=== PATIENT | female | born 1965 | race Caucasian/White ===

== ENCOUNTER → 2018-01-26 | Outpatient (CLI) | payer MEDICARE, OTHER ==
[~2018-01-26] MED LIST: ALBU90OI6 INH; AMOCLA500 PO; Aspir 8181 MG PO; BYDUREON P2 MG/0.65 SQ; BYDUREON2 MG SC; Clobetasol Prop50 ML TOP; DULO30 PO; DULO60 PO; FLUT110OIA INH; GABA600 PO; GLIM4 PO; IBUP400 PO; INSDET100 SC; INVOKANA300 MG PO; LISI5 PO; Lantus100 UNIT/1 SQ; METO50ER PO; METPRE4DP PO; Maxalt10 MG PO; Metformin HCl1000 MG PO; Norco 10-325 T1 EACH PO; Norco 5-325 Ta1 EACH PO; SOLI5
[2018-01-29 10:32] LABS: HPV Genotype 16 Not Detected (NOTDET); HPV Genotype 18 Not Detected (NOTDET); HPV High Risk Other Not Detected (NOTDET)
== END ==
LOC: PLD 13:39 → LAB SHORT 13:39
PROVIDERS: Registered Nurse Community Health
DX: Z12.4 Encounter for screening for malignant neoplasm of cervix (principal); N95.0 Postmenopausal bleeding; N93.9 Abnormal uterine and vaginal bleeding, unspecified; N89.8 Other specified noninflammatory disorders of vagina
CPT/HCPCS: 87070; 87106; 87205

== ENCOUNTER 2018-02-08 19:57 | Inpatient (IN) | payer MEDICARE, OTHER ==
[~2018-02-08] VITALS: Ht 177.8 cm; Wt 120.5 kg
[2018-02-08 20:36] LABS: BASOPHILS ABSOLUTE AUTO 0.05 K/mm3 (0.00-0.23); BASOPHILS PERCENT AUTO 0 % (0-2); EOSINOPHILS ABSOLUTE AUTO 0.12 K/mm3 (0.00-0.68); EOSINOPHILS PERCENT AUTO 1 % (0-6); Hematocrit 43.1 % (33.0-51.0); Hemoglobin 14.6 g/dL (11.5-16.0); IMMATURE GRAN ABSOLUTE AUTO 0.06 K/mm3 (0.00-0.10); IMMATURE GRAN PERCENT AUTO 1 % (0-1); LYMPHOCYTES ABSOLUTE AUTO 1.87 K/mm3 (0.84-5.20); LYMPHOCYTES PERCENT AUTO 17 % (21-46); MONOCYTES ABSOLUTE AUTO 0.66 K/mm3 (0.16-1.47); MONOCYTES PERCENT AUTO 6 % (4-13); Mean Corpuscular HGB 32.2 pg (26.0-34.0); Mean Corpuscular HGB Conc 33.9 g/dL (31.5-36.5); Mean Corpuscular Volume 95 fL (80-100); NEUTROPHILS PERCENT AUTO 76 % (41-73); Platelet Count 164 K/mm3 (150-400); RDW Coefficient Variation 14.7 % (11.7-14.2); RDW Standard Deviation 50.7 fL (35.1-46.3); Red Blood Cell Count 4.54 M/mm3 (3.80-5.20); White Blood Cell Count 11.26 K/mm3 (4.00-11.30)
[2018-02-08 20:44] LABS: Alanine Aminotransfer (ALT/SGP 22 U/L (12-78); Albumin, Blood 2.8 g/dL (3.4-5.0); Albumin/Globulin Ratio 0.6 (0.8-1.8); Alk Phos 112 U/L (50-136); Anion Gap 6 mmol/L (6-16); Aspartate Aminotrans (AST/SGOT 17 U/L (12-37); Bilirubin, Total 0.6 mg/dL (0.1-1.0); Blood Urea Nitrogen 14 mg/dL (8-24); Bun/Creatinine Ratio 22.5 (12.0-20.0); CO2, Blood 29 mmol/L (21-32); Calcium, Blood 8.5 mg/dL (8.5-10.1); Chloride, Blood 101 mmol/L (98-108); Creatinine, Blood 0.62 mg/dL (0.40-1.00); Globulin, Blood 4.7 g/dL (2.2-4.0); Glomerular Filtration Rate >60 (60-); Glucose, Blood 266 mg/dL (70-99); Sodium, Blood 136 mmol/L (136-145); Total Protein, Blood 7.5 g/dL (6.4-8.2)
[2018-02-08] MEDS ORDERED: CLOB.05TO TOP (21:37)
[2018-02-08] MEDS ORDERED: DICL75ER PO (21:38)
[2018-02-08] MEDS ORDERED: DICLOFENAC SOD100 G1 TOP (21:38)
[2018-02-08] MEDS ORDERED: IBUP800 PO (22:07)
[2018-02-08] MEDS ORDERED: DIAZ5 PO (22:08)
[2018-02-08] MEDS ORDERED: Nyamyc15 GM TOP (22:08)
[2018-02-09 05:00] LABS: BASOPHILS ABSOLUTE AUTO 0.03 K/mm3 (0.00-0.23); BASOPHILS PERCENT AUTO 0 % (0-2); EOSINOPHILS ABSOLUTE AUTO 0.13 K/mm3 (0.00-0.68); EOSINOPHILS PERCENT AUTO 1 % (0-6); Hematocrit 38.5 % (33.0-51.0); Hemoglobin 12.8 g/dL (11.5-16.0); IMMATURE GRAN ABSOLUTE AUTO 0.06 K/mm3 (0.00-0.10); IMMATURE GRAN PERCENT AUTO 1 % (0-1); LYMPHOCYTES ABSOLUTE AUTO 1.96 K/mm3 (0.84-5.20); LYMPHOCYTES PERCENT AUTO 20 % (21-46); MONOCYTES ABSOLUTE AUTO 0.73 K/mm3 (0.16-1.47); MONOCYTES PERCENT AUTO 7 % (4-13); Mean Corpuscular HGB 31.4 pg (26.0-34.0); Mean Corpuscular HGB Conc 33.2 g/dL (31.5-36.5); Mean Corpuscular Volume 94 fL (80-100); Mean Platelet Volume 12.3 fL (9.1-12.4); NEUTROPHILS ABSOLUTE AUTO 7.16 K/mm3 (1.96-9.15); NEUTROPHILS PERCENT AUTO 71 % (41-73); Platelet Count 137 K/mm3 (150-400); RDW Coefficient Variation 14.7 % (11.7-14.2); RDW Standard Deviation 51.2 fL (35.1-46.3); Red Blood Cell Count 4.08 M/mm3 (3.80-5.20); White Blood Cell Count 10.07 K/mm3 (4.00-11.30)
[2018-02-09] MEDS ORDERED: Maxalt10 MG (05:09)
[2018-02-09] MEDS ORDERED: SOLI5 PO (05:09)
[2018-02-09] MEDS ORDERED: TRAM50 PO (05:10)
[2018-02-09 05:19] LABS: Anion Gap 6 mmol/L (6-16); Blood Urea Nitrogen 10 mg/dL (8-24); Bun/Creatinine Ratio 16.1 (12.0-20.0); CO2, Blood 30 mmol/L (21-32); Calcium, Blood 8.1 mg/dL (8.5-10.1); Chloride, Blood 105 mmol/L (98-108); Creatinine, Blood 0.62 mg/dL (0.40-1.00); Glomerular Filtration Rate >60 (60-); Glucose, Blood 125 mg/dL (70-99); Sodium, Blood 141 mmol/L (136-145)
[2018-02-09 22:38] LABS: Vancomycin, Trough 10.7 ug/mL (5.0-10.0)
[2018-02-11 11:11] LABS: Vancomycin, Trough 18.3 ug/mL (5.0-10.0)
[2018-02-12 06:05] LABS: Hematocrit 39.1 % (33.0-51.0); Mean Corpuscular HGB 31.3 pg (26.0-34.0); Mean Corpuscular HGB Conc 33.2 g/dL (31.5-36.5); Mean Corpuscular Volume 94 fL (80-100); Mean Platelet Volume 11.8 fL (9.1-12.4); Platelet Count 178 K/mm3 (150-400); RDW Coefficient Variation 14.7 % (11.7-14.2); RDW Standard Deviation 50.4 fL (35.1-46.3); Red Blood Cell Count 4.15 M/mm3 (3.80-5.20); White Blood Cell Count 8.86 K/mm3 (4.00-11.30)
[2018-02-12 06:26] LABS: Anion Gap 7 mmol/L (6-16); Blood Urea Nitrogen 20 mg/dL (8-24); Bun/Creatinine Ratio 27.9 (12.0-20.0); CO2, Blood 28 mmol/L (21-32); Chloride, Blood 107 mmol/L (98-108); Creatinine, Blood 0.72 mg/dL (0.40-1.00); Glomerular Filtration Rate >60 (60-); Glucose, Blood 138 mg/dL (70-99); Sodium, Blood 142 mmol/L (136-145)
[2018-02-12] MEDS ORDERED: CLOB.05TO TOP (13:10)
[2018-02-12] MEDS ORDERED: Augmentin 875-1 EACH PO (13:11)
[2018-02-12] MEDS ORDERED: SACC250C PO (13:11)
[2018-02-12] MEDS ORDERED: MIRALAX17 GM PO (13:12)
== END 2018-02-12 15:04 | disposition home or self-care (01) | DRG 623 ==
LOC: ER 19:57 → MEDS 19:58 → ENPENDDIS 02-12 11:00 → MEDS 02-12 15:04
PROVIDERS: Emergency Medicine; Internal Medicine; Nurse Practitioner Acute Care; Podiatrist Foot & Ankle Surgery
PROC: 0JBQ0ZZ Excision of Right Foot Subcutaneous Tissue and Fascia, Open Approach (ICD-10-PCS; principal; 2018-02-10 12:00)
DX: E11.621 Type 2 diabetes mellitus with foot ulcer (principal); Z68.41 Body mass index [BMI] 40.0-44.9, adult; L97.413 Non-pressure chronic ulcer of right heel and midfoot with necrosis of muscle; E11.40 Type 2 diabetes mellitus with diabetic neuropathy, unspecified; Z79.4 Long term (current) use of insulin; G47.33 Obstructive sleep apnea (adult) (pediatric); I10 Essential (primary) hypertension; F41.9 Anxiety disorder, unspecified; B95.4 Other streptococcus as the cause of diseases classified elsewhere; E66.01 Morbid (severe) obesity due to excess calories; K59.00 Constipation, unspecified
CPT/HCPCS: 36415; 73630; 73718; 80048; 80053; 80202; 82565; 82947; 83605; 85025; 85027; 87040; 87070; 87071; 87075; 87077; 87147; 87186; 87205; 88304; 93005; 93010; 94660; 94762; 96365; 96375; 99285; J0171; J0690; J1100; J1200; J1650; J1815; J2250; J2405; J3010; J3370; J7030; J7050; J7120

== ENCOUNTER 2018-04-19 18:51 | Emergency (ER) | payer MEDICARE, OTHER ==
[~2018-04-19] VITALS: Ht 175.3 cm; Wt 120.2 kg
[~2018-04-19 18:51] MED LIST changes: +Augmentin 875-1 EACH PO; +CLOB.05TO TOP; +DIAZ5 PO; +DICL75ER PO; +DICLOFENAC SOD100 G1 TOP; +IBUP800 PO; +MIRALAX17 GM PO; +Maxalt10 MG; +Nyamyc15 GM TOP; +SACC250C PO; +SOLI5 PO; +TRAM50 PO
[2018-04-19 19:39] LABS: BASOPHILS ABSOLUTE AUTO 0.07 K/mm3 (0.00-0.23); BASOPHILS PERCENT AUTO 1 % (0-2); EOSINOPHILS ABSOLUTE AUTO 0.13 K/mm3 (0.00-0.68); EOSINOPHILS PERCENT AUTO 1 % (0-6); Hematocrit 44.5 % (33.0-51.0); Hemoglobin 14.9 g/dL (11.5-16.0); IMMATURE GRAN ABSOLUTE AUTO 0.04 K/mm3 (0.00-0.10); IMMATURE GRAN PERCENT AUTO 0 % (0-1); LYMPHOCYTES ABSOLUTE AUTO 1.91 K/mm3 (0.84-5.20); LYMPHOCYTES PERCENT AUTO 18 % (21-46); MONOCYTES PERCENT AUTO 7 % (4-13); Mean Corpuscular HGB 31.6 pg (26.0-34.0); Mean Corpuscular HGB Conc 33.5 g/dL (31.5-36.5); Mean Corpuscular Volume 94 fL (80-100); Mean Platelet Volume 12.4 fL (9.1-12.4); NEUTROPHILS ABSOLUTE AUTO 7.85 K/mm3 (1.96-9.15); NEUTROPHILS PERCENT AUTO 73 % (41-73); Platelet Count 172 K/mm3 (150-400); RDW Coefficient Variation 14.6 % (11.7-14.2); RDW Standard Deviation 50.4 fL (35.1-46.3); Red Blood Cell Count 4.72 M/mm3 (3.80-5.20)
[2018-04-19 20:03] LABS: Alanine Aminotransfer (ALT/SGP 34 U/L (12-78); Albumin, Blood 3.2 g/dL (3.4-5.0); Albumin/Globulin Ratio 0.7 (0.8-1.8); Alk Phos 163 U/L (50-136); Anion Gap 9 mmol/L (6-16); Aspartate Aminotrans (AST/SGOT 36 U/L (12-37); Bilirubin, Total 0.8 mg/dL (0.1-1.0); Blood Urea Nitrogen 19 mg/dL (8-24); Bun/Creatinine Ratio 23.7 (12.0-20.0); CO2, Blood 29 mmol/L (21-32); Calcium, Blood 8.9 mg/dL (8.5-10.1); Chloride, Blood 100 mmol/L (98-108); Globulin, Blood 4.8 g/dL (2.2-4.0); Glomerular Filtration Rate >60 (60-); Glucose, Blood 207 mg/dL (70-99); Sodium, Blood 138 mmol/L (136-145)
[2018-04-19] MEDS ORDERED: Novolog100 UNIT/2 SC (21:57)
[2018-04-20] MEDS ORDERED: Clobetasol Prop50 ML TOP (17:53)
[2018-04-20] MEDS ORDERED: GLIM4 PO (17:54)
[2018-04-20] MEDS ORDERED: TRAM50 PO ×2 (17:55→17:56)
== END 2018-04-20 03:35 | disposition home or self-care (01) ==
LOC: ER 18:51
PROVIDERS: Emergency Medicine
DX: S91.115A Laceration without foreign body of left lesser toe(s) without damage to nail, initial encounter (principal); E11.621 Type 2 diabetes mellitus with foot ulcer; L03.116 Cellulitis of left lower limb; L97.529 Non-pressure chronic ulcer of other part of left foot with unspecified severity; J45.909 Unspecified asthma, uncomplicated; Z79.4 Long term (current) use of insulin; Z79.899 Other long term (current) drug therapy; X58.XXXA Exposure to other specified factors, initial encounter
CPT/HCPCS: 36415; 73630; 73701; 80053; 83605; 85025; 96365; 96366; 99284-25; J3370; J7050; Q9967

== ENCOUNTER 2018-04-20 12:04 | Inpatient (IN) | payer MEDICARE ==
[~2018-04-20] VITALS: Ht 177.8 cm; Wt 119.9 kg
[~2018-04-20 12:04] MED LIST changes: +Novolog100 UNIT/2 SC
[2018-04-20 15:08] LABS: BASOPHILS ABSOLUTE AUTO 0.05 K/mm3 (0.00-0.23); BASOPHILS PERCENT AUTO 1 % (0-2); EOSINOPHILS ABSOLUTE AUTO 0.14 K/mm3 (0.00-0.68); EOSINOPHILS PERCENT AUTO 2 % (0-6); Hematocrit 40.5 % (33.0-51.0); Hemoglobin 13.3 g/dL (11.5-16.0); IMMATURE GRAN ABSOLUTE AUTO 0.03 K/mm3 (0.00-0.10); IMMATURE GRAN PERCENT AUTO 0 % (0-1); LYMPHOCYTES ABSOLUTE AUTO 1.04 K/mm3 (0.84-5.20); LYMPHOCYTES PERCENT AUTO 11 % (21-46); MONOCYTES ABSOLUTE AUTO 0.58 K/mm3 (0.16-1.47); MONOCYTES PERCENT AUTO 6 % (4-13); Mean Corpuscular HGB 30.9 pg (26.0-34.0); Mean Corpuscular HGB Conc 32.8 g/dL (31.5-36.5); Mean Corpuscular Volume 94 fL (80-100); Mean Platelet Volume 12.1 fL (9.1-12.4); NEUTROPHILS ABSOLUTE AUTO 7.32 K/mm3 (1.96-9.15); NEUTROPHILS PERCENT AUTO 80 % (41-73); Platelet Count 145 K/mm3 (150-400); RDW Coefficient Variation 14.6 % (11.7-14.2); RDW Standard Deviation 50.1 fL (35.1-46.3); Red Blood Cell Count 4.31 M/mm3 (3.80-5.20); White Blood Cell Count 9.16 K/mm3 (4.00-11.30)
[2018-04-20 15:25] LABS: Alanine Aminotransfer (ALT/SGP 31 U/L (12-78); Albumin, Blood 2.8 g/dL (3.4-5.0); Albumin/Globulin Ratio 0.7 (0.8-1.8); Alk Phos 150 U/L (50-136); Anion Gap 9 mmol/L (6-16); Aspartate Aminotrans (AST/SGOT 23 U/L (12-37); Bilirubin, Total 0.6 mg/dL (0.1-1.0); Blood Urea Nitrogen 18 mg/dL (8-24); Bun/Creatinine Ratio 27.7 (12.0-20.0); CO2, Blood 27 mmol/L (21-32); Calcium, Blood 8.6 mg/dL (8.5-10.1); Chloride, Blood 101 mmol/L (98-108); Creatinine, Blood 0.65 mg/dL (0.40-1.00); Globulin, Blood 4.3 g/dL (2.2-4.0); Glomerular Filtration Rate >60 (60-); Glucose, Blood 258 mg/dL (70-99); Potassium, Blood 4.3 mmol/L (3.5-5.5); Sodium, Blood 137 mmol/L (136-145); Total Protein, Blood 7.1 g/dL (6.4-8.2)
[2018-04-20] MEDS ORDERED: Clobetasol Prop50 ML TOP (17:53)
[2018-04-20] MEDS ORDERED: GLIM4 PO (17:54)
[2018-04-20] MEDS ORDERED: TRAM50 PO ×2 (17:55→17:56)
[2018-04-23 08:25] LABS: Hematocrit 41.1 % (33.0-51.0); Hemoglobin 13.6 g/dL (11.5-16.0); Mean Corpuscular HGB 30.7 pg (26.0-34.0); Mean Corpuscular HGB Conc 33.1 g/dL (31.5-36.5); Mean Corpuscular Volume 93 fL (80-100); Mean Platelet Volume 11.5 fL (9.1-12.4); Platelet Count 172 K/mm3 (150-400); RDW Coefficient Variation 14.6 % (11.7-14.2); RDW Standard Deviation 49.1 fL (35.1-46.3); Red Blood Cell Count 4.43 M/mm3 (3.80-5.20); White Blood Cell Count 8.46 K/mm3 (4.00-11.30)
[2018-04-23 08:43] LABS: Anion Gap 6 mmol/L (6-16); Blood Urea Nitrogen 14 mg/dL (8-24); Bun/Creatinine Ratio 21.6 (12.0-20.0); CO2, Blood 31 mmol/L (21-32); Calcium, Blood 8.6 mg/dL (8.5-10.1); Chloride, Blood 105 mmol/L (98-108); Creatinine, Blood 0.65 mg/dL (0.40-1.00); Glomerular Filtration Rate >60 (60-); Glucose, Blood 139 mg/dL (70-99); Potassium, Blood 4.5 mmol/L (3.5-5.5); Sodium, Blood 142 mmol/L (136-145)
[2018-04-23] MEDS ORDERED: INSU100I6 (11:47)
[2018-04-23] MEDS ORDERED: TRAM50 PO (11:48)
[2018-04-23] MEDS ORDERED: Nystatin15 GM TOP (11:49)
[2018-04-23] MEDS ORDERED: MUPIROCIN15 GM TOP (11:52)
[2018-04-23] MEDS ORDERED: BETADINE TOP (11:55)
[2018-04-23] MEDS ORDERED: Augmentin 875-1 EACH PO (11:56)
[2018-04-23] MEDS ORDERED: ACIDOPHILUS LA1 EACH PO (11:57)
== END 2018-04-23 21:11 | disposition home or self-care (01) | DRG 638 ==
LOC: ER 12:04 → MEDS 14:59 → SURS 14:59 → MEDS 17:02 → EDPENDDIS 04-23 12:29 → ENPENDDIS 04-23 12:29 → MEDS 04-23 21:11
PROVIDERS: Emergency Medicine; Internal Medicine
DX: E11.621 Type 2 diabetes mellitus with foot ulcer (principal); L03.116 Cellulitis of left lower limb; E11.610 Type 2 diabetes mellitus with diabetic neuropathic arthropathy; L97.519 Non-pressure chronic ulcer of other part of right foot with unspecified severity; L97.522 Non-pressure chronic ulcer of other part of left foot with fat layer exposed; E11.42 Type 2 diabetes mellitus with diabetic polyneuropathy; Z79.4 Long term (current) use of insulin; G47.33 Obstructive sleep apnea (adult) (pediatric); I10 Essential (primary) hypertension; S91.119A Laceration without foreign body of unspecified toe without damage to nail, initial encounter; E11.65 Type 2 diabetes mellitus with hyperglycemia; E66.01 Morbid (severe) obesity due to excess calories; Z68.38 Body mass index [BMI] 38.0-38.9, adult
CPT/HCPCS: 36415; 73630; 73701; 80048; 80053; 82947; 83605; 85025; 85027; 87040; 87070; 87075; 87077; 87147; 87186; 87205; 96365; 96366; 96374; 99284-25; J0690; J1650; J1815; J2543; J3370; J7030; J7050; Q9967

== ENCOUNTER 2018-06-29 04:49 | Emergency (ER) | payer MEDICARE, OTHER ==
[~2018-06-29] VITALS: Ht 177.8 cm; Wt 117.9 kg
[~2018-06-29 04:49] MED LIST changes: +ACIDOPHILUS LA1 EACH PO; +BETADINE TOP; +INSU100I6; +MUPIROCIN15 GM TOP; +Nystatin15 GM TOP
[2018-06-29] MEDS ORDERED: Norco 5-325 Ta1 EACH PO (06:17)
[2018-07-01] MEDS ORDERED: TRAM50 PO (12:20)
[2018-07-01] MEDS ORDERED: GABA600 PO (12:20)
[2018-07-01] MEDS ORDERED: ALBU90OI INH (12:23)
[2018-07-01] MEDS ORDERED: [UNRECOGNIZED DRUG - OTHER] TOP (12:24)
[2018-07-01] MEDS ORDERED: TERBINAFINE HCL30 GM PO (12:25)
[2018-07-01] MEDS ORDERED: DICLOFENAC GEL 1% TOP (12:25)
== END 2018-06-29 06:32 | disposition home or self-care (01) ==
LOC: ER 04:49
DX: S82.62XA Displaced fracture of lateral malleolus of left fibula, initial encounter for closed fracture (principal); E11.40 Type 2 diabetes mellitus with diabetic neuropathy, unspecified; J45.909 Unspecified asthma, uncomplicated; Z79.899 Other long term (current) drug therapy; Z79.4 Long term (current) use of insulin; X58.XXXA Exposure to other specified factors, initial encounter
CPT/HCPCS: 29515; 73610; 73620; 99283-25

== ENCOUNTER 2018-07-06 10:31 | Day surgery (SDC) | payer MEDICARE, OTHER ==
[~2018-07-06] VITALS: Ht 177.8 cm; Wt 122.6 kg
[~2018-07-06 10:31] MED LIST changes: +ALBU90OI INH; +DICLOFENAC GEL 1% TOP; +TERBINAFINE HCL30 GM PO; +[UNRECOGNIZED DRUG - OTHER] TOP
== END 2018-07-06 14:57 | disposition home or self-care (01) ==
LOC: ORSCSDS 10:31 → ORD 12:00 → ORSCSDS 12:00 → ORSCMMR 12:00 → ORSCSDS 14:57
PROVIDERS: Podiatrist Foot & Ankle Surgery
PROC: 0QSP04Z Reposition Left Metatarsal with Internal Fixation Device, Open Approach (ICD-10-PCS; principal; 2018-07-06 12:00)
PROC: 0QSK04Z Reposition Left Fibula with Internal Fixation Device, Open Approach (ICD-10-PCS; principal; 2018-07-06 12:00)
DX: S82.62XA Displaced fracture of lateral malleolus of left fibula, initial encounter for closed fracture (principal); S92.322A Displaced fracture of second metatarsal bone, left foot, initial encounter for closed fracture; E11.621 Type 2 diabetes mellitus with foot ulcer; I48.91 Unspecified atrial fibrillation; G47.33 Obstructive sleep apnea (adult) (pediatric); K21.9 Gastro-esophageal reflux disease without esophagitis; Z86.14 Personal history of Methicillin resistant Staphylococcus aureus infection; E66.01 Morbid (severe) obesity due to excess calories; Z68.39 Body mass index [BMI] 39.0-39.9, adult; Z79.4 Long term (current) use of insulin; Z79.899 Other long term (current) drug therapy
CPT/HCPCS: 82947; C1713; C1769; J0330; J0690; J2250; J3010; J7120

== ENCOUNTER 2018-10-05 22:05 | Inpatient (IN) | payer MEDICARE, OTHER ==
[~2018-10-05] VITALS: Ht 175.3 cm; Wt 121.3 kg
[~2018-10-05 22:05] MED LIST changes: +DICLOFONO2.5 GM TOP; -INSU100I6; +INSU100I6 SC; -Maxalt10 MG; -[UNRECOGNIZED DRUG - OTHER] TOP
[2018-10-05 23:08] LABS: Influenza A Negative (NEGATIVE); Influenza B Negative (NEGATIVE)
[2018-10-05 23:11] LABS: BASOPHILS PERCENT AUTO 0 % (0-2); EOSINOPHILS ABSOLUTE AUTO 0.22 K/mm3 (0.00-0.68); EOSINOPHILS PERCENT AUTO 1 % (0-6); Hematocrit 44.4 % (33.0-51.0); Hemoglobin 14.4 g/dL (11.5-16.0); IMMATURE GRAN ABSOLUTE AUTO 0.19 K/mm3 (0.00-0.10); IMMATURE GRAN PERCENT AUTO 1 % (0-1); LYMPHOCYTES ABSOLUTE AUTO 1.59 K/mm3 (0.84-5.20); LYMPHOCYTES PERCENT AUTO 7 % (21-46); MONOCYTES ABSOLUTE AUTO 1.53 K/mm3 (0.16-1.47); MONOCYTES PERCENT AUTO 7 % (4-13); Mean Corpuscular HGB 30.6 pg (26.0-34.0); Mean Corpuscular HGB Conc 32.4 g/dL (31.5-36.5); Mean Corpuscular Volume 94 fL (80-100); NEUTROPHILS ABSOLUTE AUTO 18.91 K/mm3 (1.96-9.15); NEUTROPHILS PERCENT AUTO 84 % (41-73); Platelet Count 177 K/mm3 (150-400); RDW Coefficient Variation 13.6 % (11.7-14.2); RDW Standard Deviation 47.5 fL (35.1-46.3); Red Blood Cell Count 4.71 M/mm3 (3.80-5.20); White Blood Cell Count 22.54 K/mm3 (4.00-11.30)
[2018-10-05 23:30] LABS: PCO2 Arterial 41.5 mmHg (35-45); PO2 Arterial 61.5 mmHg (80-100); pH Blood Arterial 7.42 (7.35-7.45)
[2018-10-05 23:32] LABS: Alanine Aminotransfer (ALT/SGP 45 U/L (12-78); Albumin, Blood 2.7 g/dL (3.4-5.0); Albumin/Globulin Ratio 0.6 (0.8-1.8); Alk Phos 172 U/L (50-136); Anion Gap 7 mmol/L (6-16); Aspartate Aminotrans (AST/SGOT 32 U/L (12-37); Bilirubin, Total 0.7 mg/dL (0.1-1.0); Blood Urea Nitrogen 18 mg/dL (8-24); Bun/Creatinine Ratio 25.6 (12.0-20.0); CO2, Blood 28 mmol/L (21-32); Calcium, Blood 8.6 mg/dL (8.5-10.1); Chloride, Blood 98 mmol/L (98-108); Globulin, Blood 4.6 g/dL (2.2-4.0); Glomerular Filtration Rate >60 (60-); Glucose, Blood 322 mg/dL (70-99); Potassium, Blood 4.5 mmol/L (3.5-5.5); Sodium, Blood 133 mmol/L (136-145); Total Protein, Blood 7.3 g/dL (6.4-8.2); Troponin I <0.015 ng/mL (0.000-0.040)
[2018-10-06] MEDS ORDERED: Aspir 8181 MG PO (03:14)
[2018-10-06] MEDS ORDERED: CALCA400CH PO (03:15)
[2018-10-06] MEDS ORDERED: COD LIVER OIL1 EACH PO (03:15)
[2018-10-06] MEDS ORDERED: NEPHRO-VITE RX1 EACH PO (03:17)
[2018-10-06] MEDS ORDERED: CLOB.05TO TOP (03:23)
[2018-10-06] MEDS ORDERED: CHOL10002 PO (03:25)
[2018-10-06 04:03] LABS: Adenovirus Not Detected (NOT DETECT); Bordetella pertussis Not Detected (NOT DETECT); Chlamydophila pneumoniae Not Detected (NOT DETECT); Coronavirus 229E Not Detected (NOT DETECT); Coronavirus HKU1 Not Detected (NOT DETECT); Coronavirus NL63 Not Detected (NOT DETECT); Coronavirus OC43 Not Detected (NOT DETECT); Human Metapneumovirus Not Detected (NOT DETECT); Human Rhinovirus/Enterovirus Not Detected (NOT DETECT); Influenza A/2009-H1 Not Detected (NOT DETECT); Influenza A/H1 Not Detected (NOT DETECT); Influenza A/H3 Not Detected (NOT DETECT); Influenza B Not Detected (NOT DETECT); Mycoplasma pneumoniae Not Detected (NOT DETECT); Parainfluenza Virus 1 Not Detected (NOT DETECT); Parainfluenza Virus 2 Not Detected (NOT DETECT); Parainfluenza Virus 3 Not Detected (NOT DETECT); Parainfluenza Virus 4 Not Detected (NOT DETECT); Respiratory Syncytial Virus Not Detected (NOT DETECT)
[2018-10-06 04:16] LABS: Hematocrit 43.2 % (33.0-51.0); Hemoglobin 14.2 g/dL (11.5-16.0); Mean Corpuscular HGB 31.1 pg (26.0-34.0); Mean Corpuscular HGB Conc 32.9 g/dL (31.5-36.5); Mean Corpuscular Volume 95 fL (80-100); Mean Platelet Volume 12.4 fL (9.1-12.4); Platelet Count 118 K/mm3 (150-400); RDW Coefficient Variation 13.7 % (11.7-14.2); Red Blood Cell Count 4.57 M/mm3 (3.80-5.20); White Blood Cell Count 17.71 K/mm3 (4.00-11.30)
--- NOTE | 2018-10-06 04:30 | NUR ---
PLACED CALL TO DR RHODES TO NOTIFY OF BLOOD SUGAR OF 482. TELEPHONE ORDER TO GIVE ONE TIME HIGH S/S DOSE OF INSULIN. MD CALLE NPO .
--- NOTE | 2018-10-06 04:34 | NUR ---
ED ADMIT AT 0130/ RESP UNLABORED W/ MINIMAL EXERTION. SLID OVER TO BED PER 4 PERSON. EXTREME WHEEZY COUGH . GREEN SPUTUM NOTED , VERY THICK. ST. ALOT OF COUGHING . COUGHING SPASM OCCURS EASILY AND COUGH MED GIVEN. SOME ASSISTANCE IN SUBSIDINT. FLUTTER VALVE AND I.S. REVIEWED PARTIALLY . VERY EXHAUSTED AND WILL REVIEW AGAIN. FEW SIPS OF H2O, 3 L WNL SATS. HX 2 L AT HOME PRN. SEEMS TO BE VERY LIMITED MOBILITY AT HOME . REPORTS FALLING ALOT AND NEEDS A WALKER.JULY FOOT SURGERY MAY BE SOME OF THIS AMBULATION HESITATION/ AND FALL HX. ALL WOUNDS AND SKIN ISSUES ADDRESSED.
[2018-10-06 04:40] LABS: Alanine Aminotransfer (ALT/SGP 43 U/L (12-78); Albumin, Blood 2.7 g/dL (3.4-5.0); Albumin/Globulin Ratio 0.6 (0.8-1.8); Alk Phos 179 U/L (50-136); Anion Gap 10 mmol/L (6-16); Aspartate Aminotrans (AST/SGOT 27 U/L (12-37); Blood Urea Nitrogen 20 mg/dL (8-24); Bun/Creatinine Ratio 26.7 (12.0-20.0); CO2, Blood 25 mmol/L (21-32); Calcium, Blood 8.5 mg/dL (8.5-10.1); Chloride, Blood 98 mmol/L (98-108); Creatinine, Blood 0.75 mg/dL (0.40-1.00); Globulin, Blood 4.7 g/dL (2.2-4.0); Glomerular Filtration Rate >60 (60-); Glucose, Blood 482 mg/dL (70-99); Potassium, Blood 4.7 mmol/L (3.5-5.5); Sodium, Blood 133 mmol/L (136-145); Total Protein, Blood 7.4 g/dL (6.4-8.2)
[2018-10-06 05:21] LABS: Influenza A Not Detected (NOT DETECT)
--- NOTE | 2018-10-06 06:34 | NUR ---
PREPARING TO GIVE INSULIN , THEN MD REVIEWS ORDERS AND OTHER ORDERS SUBMITTED AND INSULIN ORDER REVISED. STAFF WILL STILL GIVE EARLY INSULIN AT THIS TIME , EVEN W/ DELAY. STILL NPO. WILL RECHECK SOON AND DIET MAY BE ORDERED SOON.DOZING AND RESP EFFORT CALM AND W/O LABORING. NO REQ FOR UDNTX AT THIS TIME.
[2018-10-06] MEDS ORDERED: GAVILAX17 GM PO (08:08)
--- NOTE | 2018-10-06 09:45 | NUR ---
Advanced Directive referral. Pt given booklet and she verbalized understanding of what it entails.
--- NOTE | 2018-10-06 11:31 | NUR ---
CBG greater than 500. Lab called to come draw blood glucose level at this time. The pt is awake, alert, conversant.
[2018-10-06 12:07] LABS: Glucose, Blood 528 mg/dL (70-99)
--- NOTE | 2018-10-06 12:24 | NUR ---
Call to Dr. Rosales regarding blood sugar of 328 at this time. Insulin was given under previous standing orders. No additional insulin ordered at this time, but order to recheck blood sugar in 2 hours. Awaiting additional orders to be put in by Dr. Rosales.
[2018-10-06 14:38] LABS: Glucose, Blood 551 mg/dL (70-99)
--- NOTE | 2018-10-06 16:44 | NUR ---
Call to Dr. Rosales regarding CBG of 424. Blood sugar covered per standing orders.
--- NOTE | 2018-10-06 17:25 | NUR ---
Non-distressed, non-anxious, with a fair appetite. Able to get up OOB to BSC despite stating that she feels short of breath with activity. No dyspnea noted. Infrequent cough, green mucous production. Vital signs stable. Blood sugars trending down after extra coverage this afternoon when CBGs were over 500. Pt had complaints of burning skin in areas of redness, but nystatin powder applied and the pt has no additional complaints this afternoon.
--- NOTE | 2018-10-06 21:30 | NUR ---
ASSUMED CARE OF PATIENT AT APPROXIMATELY 1905 FROM TEDDY Yanez RN. PATIENT ALERT AND ORIENTED X4. PATIENT REPORTS SHARP PAIN IN HER CHEST THAT SHE REPORTS HAPPENS EVERY TIMES SHE GETS UP; SHE REPORTS THIS HAS BEEN OCCURING FOR DAYS, BEFORE ADMISSION, PAIN IS GONE WITHIN A FEW MINUTES OF LAYING BACK DOWN; DYSPNEA WITH ACTIVITY. PATIENT REPORTS CONSTANT NUMBNESS IN LEGS/FEET AND INTERMITTENT TINGLING; REDNESS IN FOLDS; NYSTATIN POWDER APPLIED; WOUNDS AND BRUISING NOTED ON FEET; PATIENT REPORTS 1ST DIGIT ON LEFT FOOT BROKE LAST MONTH; PATIENT HAS HX OF MULTIPLE FALLS. DENIES DIZINESS, LIGHTHEADEDNESS AND NAUSEA. 1 ASSIST W/ GAIT BELT AND FWW TO BEC. PCU NO TELE STATUS; HEART RATE 90S-100S; OXYGEN SATURATION ABOVE 90% ON 2LPM (BASELINE FOR PATIENT). IV ABX CURRENTLY INFUSING. PATIENT CURRENTLY RESTING IN BED; CALL LIGHT IN REACH; BED IN LOWEST POSISTION; BED ALARM ON; WILL CONTINUE TO MONITOR AND ASSESS UNTIL END OF SHIFT.
--- NOTE | 2018-10-07 06:32 | NUR ---
PATIENT SLEPT ABOUT EIGHT HOURS LAST NIGHT. REQUESTED TYLENOL ONCE; COUGH MEDICATION TWICE. NO ACUTE CHANGES TO REPORT. WILL CONTINUE TO MONITOR AND ASSESS UNTIL END OF SHIFT.
--- NOTE | 2018-10-07 07:30 | NUR ---
DR. BO AT BEDSIDE FOR EVALUATION.
--- NOTE | 2018-10-07 08:00 | NUR ---
NURSING SUMMARY ALERT AND ORIENTED X4. NON-TELE, VSS. LUNGS WITH EXPIRATORY WHEEZES THROUGHOUT, 2L O2 NC, SATS 98%, RESPIRATORY TREATMENTS, SOLUMEDROL. ADA DIET, BLOOD SUGARS AC&HS, RUNNING IN THE LOW 400'S, COVERING WITH SLIDING SCALE INSULIN, PER MD NOTES, LIKELY DUE TO STEROIDS. OBESE, TOLERATING DIET, NORMOACTIVE BOWEL SOUNDS, BM TODAY PER BEDSIDE COMMODE. C/O CHEST PAIN WITH COUGHING, MUSCLES SORE, GIVING ROBITUSSIN COUGH SYRUP, WBC'S ELEVATED. CALLS FOR ASSISTANCE OUT OF BED. VOIDS PER BEDSIDE COMMODE. C/O NUMBNESS AND TINGLING TO BILATERAL LEGS, NEUROPATHY PAIN, ON NEURONTIN, FELL AT HOME AND BROKE HER LEFT BIG TOE. ALSO HAS ABRASIONS TO LEFT FOOT AND RIGHT FOOT, HEALING. CXR - ATELECTASIS. RIGHT AC 20G SALINE LOCK.
--- NOTE | 2018-10-07 08:13 | NUR ---
ELEVATED BLOOD SUGAR BLOOD SUGAR = 411, CALLED DR. BO TO ADVISE, GAVE 28 UNITS OF HUMALOG PER ORDERS.
--- NOTE | 2018-10-07 16:49 | NUR ---
NURSING SUMMARY ALERT AND ORIENTED X4, NON-TELE, VSS, LUNGS WITH EXPIRATORY WHEEZING, 2L O2 NC, SATS WNL. RT TREATMENTS, SOLUMEDROL, ADA DIET, BLOOD SUGARS AC&HS, RUNNING IN THE LOW 400'S, COVERING WITH SLIDING SCALE INSULIN AND ROUTINE INSULIN, MD NOTES STATES BLOOD SUGARS ELEVATED DUE TO STEROIDS, OBESE, TOLERATING DIET, VOIDS PER BEDSIDE COMMODE, BM X 1 TODAY PER BEDSIDE COMMODE, C/O CHEST PAIN WITH COUGHING, MUSCLES SORE, ROBITUSSIN, WBC'S ELEVATED, CALLS APPROPRIATELY FOR ASSISTANCE OUT OF BED. NEUROPATHY PAIN, ON NEURONTIN, FELL AT HOME AND BROKE HER LEFT BIG TOE, ALSO HAS WOUNDS TO BILATERAL FEET, SURGERY TO LEFT FOOT WITH MEPILEX IN PLACE. RIGHT AC 20G SALINE LOCK.
--- NOTE | 2018-10-08 00:50 | NUR ---
PM NOTE. ASSUMED CARE OF PT APROX 1900, PT IS A&Ox4, PLEASENT AND COOPERATIVE WITH CARE. PT WAS ADMITTED DUE TO ASTHMA EXC. PT HAS IMPROVED, WITH STATS >90% ON 2 L NC. PT'S HRR 101, PT'S BP 150/87, NO EDEMA PRESENT ON ASSESSMENT. L/S CRACKELS AND EXP WHEEZES T/O. BT PRESENT AND HYPERACTIVE, ABD IS SOFT AND NONTENDER TO PALP. PT HAS YEAST UNDER HER PANNUS, THIS AREA WAS MEDICATED PER EMAR AFTER PT'S SHOWER. CALL LIGHT IN REACH, BED IS LOCKED AND LOW, WILL CONITNUE TO MONITOR.
--- NOTE | 2018-10-08 06:21 | NUR ---
SHIFT SUMMARY. NO ACUTE CHANGES THIS SHIFT. PT TOOK A SHOWER AT THE BEGINING OF THIS SHIFT. PT HAS SLEPT SOUNDLY. VS HAVE BEEN STABLE, PT DENIES ANY CHEST PAIN/PRESSURE, N/V AND SLIGHT SOB WITH ACTIVITY. CALL LIGHT IN REACH, BED IS LOCKED AND LOW, WILL CONTINUE TO MONITOR UNTIL REPORT IS GIVEN TO ONCOMING RN.
--- NOTE | 2018-10-08 11:31 | NUR ---
RESPIRATORY THERAPY OBTAINED PT'S SLEEP STUDY RESULTS FROM MARCH 2018 DUE TO PT STATING SHE NO LONGER USES A CPAP AT HOME BUT DOES USE SUPPLEMENTAL OXYGEN NEEDED. CALLED DR. BO RE: SLEEP STUDY RESULTS, NEW ORDER TO DC CPAP.
--- NOTE | 2018-10-08 17:49 | NUR ---
NURSING SUMMARY ALERT AND ORIENTED X4. NON-TELE, VSS. EXPIRATORY WHEEZING THROUGHOUT, WEANED FROM 2L TO ROOM AIR WITH CONSULT WITH RESPIRATORY THERAPY. VOIDS PER BEDSIDE COMMODE WNL. TOLERATING AN ADA DIET, BLOOD SUGARS 318 AT BREAKFAST, 375 AT LUNCH, AND 350 AT DINNER, COVERING WITH SLIDING SCALE AND ROUTINE INSULIN. C/O COUGH THAT HURTS HER CHEST, GIVING ROBITUSSIN. STANDBY ASSIST. NUMBNESS AND TINGLING TO BILATERAL LEGS, TAKES NEURONTIN. RIGHT FOOT WOUND AND LEFT FOOT ABRASION, BROKEN BIG TOE, AND HEALING LEFT ANKLE SURGICAL SITE. DENIES PAIN THAT REQUIRES PAIN MEDICATION. RAC 20G SALINE LOCK. FAMILY AT BEDSIDE MOST OF THE AFTERNOON AND EVENING.
--- NOTE | 2018-10-08 20:30 | NUR ---
PM NOTE. ASSUMED CARE OF PT APROX 1900, PT IS A&Ox4, PLEASENT AND COOPERATIVE WITH CARE. PT WAS ADMITTED DUE TO ASTHMA EXC. PT IS CURRENTLY ON 1L NC PRN W/ STATS >90% WHICH IS IMPROVEMENT FROM PREVIOUS SHIFT. PT'S HRR AT 103, PT'S BP 132/68. NO EDEMA PRESENT ON ASSESSMENT. L/S WHEEZES T/O, BT PRESENT AND HYPERACTIVE, ABD IS SOFT AND NONTENDER TO PALP. PT'S BLOOD SUGARS HAVE BEEN ELEVATED, PT WAS TREATED PER EMAR. PT DENIES ANY CHEST PAIN/PRESSURE OR N/V, PT BECOMES SOB WITH ACTIVITY. CALL LIGHT IN REACH, BED IS LOCKED AND LOW, WILL CONTINUE TO MONITOR.
--- NOTE | 2018-10-08 23:00 | NUR ---
PT TRANSFER. REPORT WAS CALLED TO HANNAH BISHOP ON MEDICAL FLOOR. NO ACUTE CHANGES NOTED IN PT PRIOR TO TRANSFER, PT'S VS STABLE. ALL OF PT'S BELONGINS WERE TAKEN WITH THE PT.
--- NOTE | 2018-10-08 23:32 | NUR ---
PATIENT TRANSFER FROM PCU 13. REPORT TAKEN FROM TUSHAR BISHOP. PATIENT SELF TRANSFER FROM BED TO BED. ON O2 2L NC. DENIES PAIN AND N/V. CALL LIGHT IN REACH.
--- NOTE | 2018-10-09 04:12 | NUR ---
SHIFT SUMMARY PATIENT IS A PCU TRANSFER. AXOX 4 AND SBA TO [facility] [place] DENIES PAIN AND N/V. ON 2L O2 NC FOR BEDTIME. PIV REMAINS INTACT. VSS/AFEBRILE. RIGHT FOOT BOTTOM WOUND DRESSING C/D/I. PATIENT REPORTS LEFT FOOT BIG TOE BROKEN AND NO SURGERY NEEDED. BREATHING TX BY RT. COOPERATIVE WITH CARE. CALL LIGHT IN REACH. BED IN LOWEST POSITION. WILL CONTINUE TO MONITOR UNTIL DAY SHIFT NURSE ASSUMES CARE.
--- NOTE | 2018-10-09 18:37 | NUR ---
SHIFT SUMMARY JULY DENIED PAIN THIS SHIFT. SBA TO BSC, CALLED APPROPRIATELY. NUC MED STRESS TEST PART ONE WAS DONE TODAY, BUT PART TWO WILL TAKE PLACE TOMORROW. CBGS HIGH, RECEIVING HIGH DOSES INSULIN DUE TO STEROIDS. NEW PIV PLACED THIS SHIFT. SHOWER WITH NEW NYSTATIN APPLIED PER PT. RA DURING DAY SHIFT. WCTM
--- NOTE | 2018-10-09 21:07 | NUR ---
2020 PT LYING IN BED, REPORTS CHRONIC NUMBNESS AND TINGLING IN BILAT FEET, PT TAKES GABAPENTIN FOR THIS. BS WAS 366. NO OTHER APPARENT SIGNS OF DISTRESS. CALL LIGHT IS IN REACH.
--- NOTE | 2018-10-09 22:57 | NUR ---
PT LYING IN BED, AWAKE, WATCHING TV. NO APPARENT SIGNS OF DISTRESS. CALL LIGHT IS IN REACH.
--- NOTE | 2018-10-10 01:53 | NUR ---
PT LYING IN BED, EYES CLOSED, APPEARS TO BE RESTING. BREATHING IS EVEN, UNLABORED. NO APPARENT SIGNS OF DISTRESS. CALL LIGHT IS IN REACH.
--- NOTE | 2018-10-10 02:52 | NUR ---
PT IS AAO X 4, ON RA AT 94% BUT PT STATES SHE WEARS 2L O2 NC AT NOC. PT HAS HX OF SLEEP APNEA BUT DOES NOT USE A CPAP. PT REPORTS CHRONIC NEUROPATHY PAIN IN HER FEET, PT TAKES GABAPENTIN FOR THIS. DENIES SOB BUT HAS EXPIRATORY WHEEZES. BS WAS 366. PT HAS TOE FX ON L FOOT AND PUNCTURE SITE ON THE BOTTOM OF THE R FOOT ON THE ARCH. REDNESS IN ABD FOLDS, USING NYSTATIN POWDER. RED PATCHES ON SCALP, USING CLOBETESOL CREAM. PT HAS ISOLATION ORDER BUT PER DAY RN THE DR STATED WE DID NOT NEED TO ISOLATE, ORDER WAS NOT PUT IN BY DAY RN, WILL F/U WITH THEM TODAY TO GET ORDER PUT IN TO DC ISOLATION OFFICIALLY.
--- NOTE | 2018-10-10 03:21 | NUR ---
PT LYING IN BED, EYES CLOSD, APPEARS TO BE RESTING. BREATHING IS EVEN, UNLABORED. NO APPARENT SIGNS OF DISTRESS. CALL LIGHT IS IN REACH.
[2018-10-10 04:33] LABS: Hematocrit 41.8 % (33.0-51.0); Hemoglobin 13.7 g/dL (11.5-16.0); Mean Corpuscular HGB 30.6 pg (26.0-34.0); Mean Corpuscular HGB Conc 32.8 g/dL (31.5-36.5); Mean Corpuscular Volume 94 fL (80-100); Platelet Count 157 K/mm3 (150-400); RDW Coefficient Variation 13.4 % (11.7-14.2); RDW Standard Deviation 46.1 fL (35.1-46.3); Red Blood Cell Count 4.47 M/mm3 (3.80-5.20); White Blood Cell Count 10.85 K/mm3 (4.00-11.30)
[2018-10-10 04:49] LABS: Anion Gap 6 mmol/L (6-16); Blood Urea Nitrogen 18 mg/dL (8-24); Bun/Creatinine Ratio 25.4 (12.0-20.0); CO2, Blood 31 mmol/L (21-32); Calcium, Blood 8.5 mg/dL (8.5-10.1); Chloride, Blood 102 mmol/L (98-108); Creatinine, Blood 0.71 mg/dL (0.40-1.00); Glomerular Filtration Rate >60 (60-); Glucose, Blood 185 mg/dL (70-99); Sodium, Blood 139 mmol/L (136-145)
--- NOTE | 2018-10-10 05:59 | NUR ---
PT LYING IN BED, EYES CLOSED, APPEARS TO BE RESTING. BREATHING IS EVEN, UNLABORED. NO APPARENT SIGNS OF DISTRESS. CALL LIGHT IS IN REACH. NO OTHER CHANGES THIS SHIFT.
--- NOTE | 2018-10-10 17:47 | NUR ---
SHE HAS BEEN VISITING WITH HER AND SON ALL AFTERNOON. HER STRESS TEST WAS COMPLETED THIS AM. RESULTS NEGATIVE PER . HE ADDED ANOTHER PO ANTIBIOTIC TODAY. SHE DOES EXPECTORATE SMALL AMTS OF YELLOW SPUTUM. IT DID NOT LOOK GREEN TO ME EVEN THOUGH THAT IS WHAT SHE STATED. SHE USES THE BSC WITH SBA. SHE IS SOB SHE SAYS ALL THE TIME. SHE HAS WHEEZES T/O. LAST CBG OVER 400. NOTIFIED AND ORDER RECEIVED. SHE HAD HER I.S. INSIDE A DRAWER. SHE PULLED IT OUT TODAY AND I INSTRUCTED HER. SHE GET [id number] ON IT. FLUTTER IS AT THE BEDSIDE ALSO.SHE IS ON RA. LARGE R ABD BRUISE THE CIRCUMFERENCE OF A LEMON. EATS AND DRINKS WELL.
--- NOTE | 2018-10-10 21:46 | NUR ---
2113 PT LYING IN BED, REPORTS CHRONIC NEUROPATHY PAIN IN FEET OF 5/10, PT TAKES NEURONTIN FOR THIS. REPORTS SOB THAT INCREASES WITH EXERTION, PT ON 2L O2 NC AT 94%. PT HAS FX ON TOE ON L FOOT AND PUNCTURE SITE ON BOTTON OF ARCH OF R FOOT. NO OTHER APPARENT SIGNS OF DISTRESS. CALL LIGHT IS IN REACH.
--- NOTE | 2018-10-11 01:04 | NUR ---
PT LYING IN BED, EYES CLOSED, APPEARS TO BE RESTING. BREATHING IS EVEN, UNLABORED. NO APPARENT SIGNS OF DISTRESS. CALL LIGHT IS IN REACH.
--- NOTE | 2018-10-11 02:07 | NUR ---
PT LYING IN BED, EYES CLOSED, APPEARS TO BE RESTING. BREATHING IS EVEN, UNLABORED. NO APPARENT SIGNS OF DISTRESS. CALL LIGHT IS IN REACH.
--- NOTE | 2018-10-11 03:06 | NUR ---
PT AAO X 4, ON RA. PT REPORTS CHRONIC NEUROPATHY PAIN IN FEET, SHE TAKES GABAPENTIN FOR THIS. PT HAS FX TOE ON L FOOT, PUNCTURE SITE ON BOTTOM OF R FOOT ON THE ARCH. REDNESS ABD/COSTA AREA, SHE HAS NYSTATIN POWDER FOR THIS. PT HAS SOME RED PATCHES ON HER SCALP, SHE HAS CLOBETESOL OINTMENT FOR THIS. PT REPORTS SOB THAT INCREASES WITH EXERTION, O2 SAT IS 94%. BS WAS 373.
--- NOTE | 2018-10-11 05:20 | NUR ---
0400 PT LYING IN BED, EYES CLOSED, APPEARS TO BE RESTING. WAKES EASILY TO VERBAL STIMULI. NO APPARENT SIGNS OF DISTRESS. CALL LIGHT IS IN REACH.
--- NOTE | 2018-10-11 12:03 | NUR ---
SHE IS FEELING GENERALLY BETTER TODAY AND HOPES TO GO HOME. HER IS AT THE BEDSIDE. RA BIOX 94%. NOT MUCH COUGH. DECREASED BREATH SOUNDS WITH SOME WHEEZES AND RHONCHI. SHE HAS ALSO BEEN FACE TIMING WITH HER GRANDKIDS. LUNCHTIME CBG 353 AFTER A NORMAL CBG AT BREAKFAST TIME. PREDNISONE DOSE STILL 40 MG.
[2018-10-11] MEDS ORDERED: MONT10T PO (13:00)
[2018-10-11] MEDS ORDERED: DULERA 200 MCG/13 GM INH (13:02)
[2018-10-11] MEDS ORDERED: PRED10 PO (13:03)
[2018-10-11] MEDS ORDERED: NYSTATIN TOP (13:05)
[2018-10-11] MEDS ORDERED: AZIT500 PO (13:06)
[2018-10-11] MEDS ORDERED: Mucinex600 MG PO (14:55)
--- NOTE | 2018-10-11 15:32 | NUR ---
DISCHARGED AT 1520 WITH BELONGINGS AND INSTRUCTIONS. SHE HAS HER DULERA INHALER LABELED FOR HOME UNTIL SHE CAN GET PREAUTHORIZATION FOR ONE AT [facility]. SHE IS GLAD TO GO HOME. IS WITH HER.
== END 2018-10-11 15:25 | disposition home or self-care (01) | DRG 202 ==
LOC: ER 22:05 → PCU 10-06 00:48 → MEDS 10-08 23:14
PROVIDERS: Emergency Medicine; Internal Medicine; ADMIT Internal Medicine
DX: J45.901 Unspecified asthma with (acute) exacerbation (principal); J96.21 Acute and chronic respiratory failure with hypoxia; Z68.41 Body mass index [BMI] 40.0-44.9, adult; J44.1 Chronic obstructive pulmonary disease with (acute) exacerbation; J10.1 Influenza due to other identified influenza virus with other respiratory manifestations; E11.9 Type 2 diabetes mellitus without complications; R07.9 Chest pain, unspecified; G43.909 Migraine, unspecified, not intractable, without status migrainosus; M19.90 Unspecified osteoarthritis, unspecified site; N39.3 Stress incontinence (female) (male); G47.33 Obstructive sleep apnea (adult) (pediatric); E11.610 Type 2 diabetes mellitus with diabetic neuropathic arthropathy; E11.65 Type 2 diabetes mellitus with hyperglycemia; Z79.4 Long term (current) use of insulin; Z79.84 Long term (current) use of oral hypoglycemic drugs; Z23 Encounter for immunization
CPT/HCPCS: 36415; 36600; 71046; 78452; 80048; 80053; 82803; 82947; 84145; 84484; 85025; 85027; 87070; 87077; 87185; 87205; 87486; 87581; 87633; 87798; 87804; 90686; 93005; 93010; 93017; 94640; 94644; 94760; 96374; 99285-25; A9500; G0008; J0706; J1650; J1815; J1956; J2785; J2930; J3475

== ENCOUNTER 2018-11-04 10:40 | Inpatient (IN) | payer MEDICARE, OTHER ==
[~2018-11-04] VITALS: Ht 177.8 cm; Wt 131.1 kg
[~2018-11-04 10:40] MED LIST changes: +AZIT500 PO; +CALCA400CH PO; +CHOL10002 PO; +COD LIVER OIL1 EACH PO; +DULERA 200 MCG/13 GM INH; +GAVILAX17 GM PO; +MONT10T PO; +Mucinex600 MG PO; +NEPHRO-VITE RX1 EACH PO; +NYSTATIN TOP; +PRED10 PO
[2018-11-04 11:49] LABS: BASOPHILS ABSOLUTE AUTO 0.03 K/mm3 (0.00-0.23); BASOPHILS PERCENT AUTO 1 % (0-2); EOSINOPHILS ABSOLUTE AUTO 0.14 K/mm3 (0.00-0.68); EOSINOPHILS PERCENT AUTO 2 % (0-6); Hematocrit 41.5 % (33.0-51.0); Hemoglobin 13.6 g/dL (11.5-16.0); IMMATURE GRAN ABSOLUTE AUTO 0.03 K/mm3 (0.00-0.10); IMMATURE GRAN PERCENT AUTO 1 % (0-1); LYMPHOCYTES ABSOLUTE AUTO 1.07 K/mm3 (0.84-5.20); LYMPHOCYTES PERCENT AUTO 17 % (21-46); MONOCYTES ABSOLUTE AUTO 0.39 K/mm3 (0.16-1.47); MONOCYTES PERCENT AUTO 6 % (4-13); Mean Corpuscular HGB 31.3 pg (26.0-34.0); Mean Corpuscular HGB Conc 32.8 g/dL (31.5-36.5); Mean Corpuscular Volume 96 fL (80-100); Mean Platelet Volume 12.7 fL (9.1-12.4); NEUTROPHILS ABSOLUTE AUTO 4.81 K/mm3 (1.96-9.15); NEUTROPHILS PERCENT AUTO 74 % (41-73); Platelet Count 138 K/mm3 (150-400); RDW Coefficient Variation 15.9 % (11.7-14.2); RDW Standard Deviation 54.4 fL (35.1-46.3); Red Blood Cell Count 4.34 M/mm3 (3.80-5.20); White Blood Cell Count 6.47 K/mm3 (4.00-11.30)
[2018-11-04 12:06] LABS: Alanine Aminotransfer (ALT/SGP 35 U/L (12-78); Albumin, Blood 2.8 g/dL (3.4-5.0); Albumin/Globulin Ratio 0.7 (0.8-1.8); Alk Phos 120 U/L (50-136); Anion Gap 8 mmol/L (6-16); Aspartate Aminotrans (AST/SGOT 24 U/L (12-37); Bilirubin, Total 0.6 mg/dL (0.1-1.0); Blood Urea Nitrogen 13 mg/dL (8-24); Bun/Creatinine Ratio 16.9 (12.0-20.0); CO2, Blood 29 mmol/L (21-32); Calcium, Blood 8.3 mg/dL (8.5-10.1); Chloride, Blood 100 mmol/L (98-108); Creatinine, Blood 0.77 mg/dL (0.40-1.00); Globulin, Blood 3.9 g/dL (2.2-4.0); Glomerular Filtration Rate >60 (60-); Glucose, Blood 445 mg/dL (70-99); Potassium, Blood 4.1 mmol/L (3.5-5.5); Sodium, Blood 137 mmol/L (136-145); Total Protein, Blood 6.7 g/dL (6.4-8.2)
[2018-11-04 20:59] LABS: Adenovirus Not Detected (NOT DETECT); Bordetella pertussis Not Detected (NOT DETECT); Chlamydophila pneumoniae Not Detected (NOT DETECT); Coronavirus 229E Not Detected (NOT DETECT); Coronavirus HKU1 Not Detected (NOT DETECT); Coronavirus NL63 Not Detected (NOT DETECT); Coronavirus OC43 Not Detected (NOT DETECT); Human Metapneumovirus Not Detected (NOT DETECT); Human Rhinovirus/Enterovirus Not Detected (NOT DETECT); Influenza A Not Detected (NOT DETECT); Influenza A/2009-H1 Not Detected (NOT DETECT); Influenza A/H1 Not Detected (NOT DETECT); Influenza A/H3 Not Detected (NOT DETECT); Influenza B Not Detected (NOT DETECT); Mycoplasma pneumoniae Not Detected (NOT DETECT); Parainfluenza Virus 1 Not Detected (NOT DETECT); Parainfluenza Virus 2 Not Detected (NOT DETECT); Parainfluenza Virus 3 Not Detected (NOT DETECT); Parainfluenza Virus 4 Not Detected (NOT DETECT); Respiratory Syncytial Virus Not Detected (NOT DETECT)
[2018-11-05 05:14] LABS: BASOPHILS ABSOLUTE AUTO 0.01 K/mm3 (0.00-0.23); BASOPHILS PERCENT AUTO 0 % (0-2); EOSINOPHILS PERCENT AUTO 0 % (0-6); Hematocrit 38.8 % (33.0-51.0); Hemoglobin 12.7 g/dL (11.5-16.0); IMMATURE GRAN ABSOLUTE AUTO 0.04 K/mm3 (0.00-0.10); IMMATURE GRAN PERCENT AUTO 1 % (0-1); LYMPHOCYTES ABSOLUTE AUTO 0.42 K/mm3 (0.84-5.20); LYMPHOCYTES PERCENT AUTO 7 % (21-46); MONOCYTES ABSOLUTE AUTO 0.04 K/mm3 (0.16-1.47); MONOCYTES PERCENT AUTO 1 % (4-13); Mean Corpuscular HGB 31.3 pg (26.0-34.0); Mean Corpuscular HGB Conc 32.7 g/dL (31.5-36.5); Mean Corpuscular Volume 96 fL (80-100); Mean Platelet Volume 12.4 fL (9.1-12.4); NEUTROPHILS ABSOLUTE AUTO 5.58 K/mm3 (1.96-9.15); NEUTROPHILS PERCENT AUTO 92 % (41-73); Platelet Count 121 K/mm3 (150-400); RDW Coefficient Variation 15.4 % (11.7-14.2); RDW Standard Deviation 52.6 fL (35.1-46.3); Red Blood Cell Count 4.06 M/mm3 (3.80-5.20); White Blood Cell Count 6.09 K/mm3 (4.00-11.30)
[2018-11-05 06:03] LABS: Anion Gap 11 mmol/L (6-16); Blood Urea Nitrogen 15 mg/dL (8-24); Bun/Creatinine Ratio 24.8 (12.0-20.0); CO2, Blood 23 mmol/L (21-32); Calcium, Blood 7.9 mg/dL (8.5-10.1); Chloride, Blood 103 mmol/L (98-108); Glomerular Filtration Rate >60 (60-); Glucose, Blood 361 mg/dL (70-99); Potassium, Blood 4.1 mmol/L (3.5-5.5); Sodium, Blood 137 mmol/L (136-145)
[2018-11-06 11:50] LABS: PCO2 Arterial 38.7 mmHg (35-45); PO2 Arterial 73.5 mmHg (80-100); pH Blood Arterial 7.42 (7.35-7.45)
[2018-11-07] MEDS ORDERED: LEVEMIR FL100 UNIT/1 SC (09:29)
[2018-11-07] MEDS ORDERED: Acetaminophen325 M1 PO (09:33)
[2018-11-07] MEDS ORDERED: LEVO750 PO (09:34)
[2018-11-07] MEDS ORDERED: ALBU3IS INH (09:34)
[2018-11-07] MEDS ORDERED: Ciprodex Otic7.5 ML RIGHTEAR (09:36)
[2018-11-07] MEDS ORDERED: DULERA 200 MCG/13 GM INH (09:37)
== END 2018-11-07 11:53 | disposition home or self-care (01) | DRG 190 ==
LOC: ER 10:40 → MEDS 14:08 → EDPENDDIS 11-06 10:00 → ENPENDDIS 11-06 10:00 → MEDS 11-07 11:53
PROVIDERS: Physician Assistant; ADMIT Internal Medicine
DX: J44.0 Chronic obstructive pulmonary disease with (acute) lower respiratory infection (principal); J18.9 Pneumonia, unspecified organism; Z68.41 Body mass index [BMI] 40.0-44.9, adult; J44.1 Chronic obstructive pulmonary disease with (acute) exacerbation; E66.01 Morbid (severe) obesity due to excess calories; E11.65 Type 2 diabetes mellitus with hyperglycemia; E11.621 Type 2 diabetes mellitus with foot ulcer; E11.610 Type 2 diabetes mellitus with diabetic neuropathic arthropathy; I10 Essential (primary) hypertension; H66.91 Otitis media, unspecified, right ear; Z86.14 Personal history of Methicillin resistant Staphylococcus aureus infection; Z79.82 Long term (current) use of aspirin; Z79.84 Long term (current) use of oral hypoglycemic drugs; Z79.4 Long term (current) use of insulin; Z79.899 Other long term (current) drug therapy
CPT/HCPCS: 36415; 36600; 71046; 80048; 80053; 82803; 82947; 83605; 85025; 87040; 87486; 87581; 87633; 87798; 93005; 93010; 94010; 94640; 94644; 94664; 94667; 94760; 96361; 96365; 96375; 98960; 99285-25; J0696; J1650; J1815; J1956; J2930; J7030; J7120

== ENCOUNTER 2019-01-15 07:00 | Day surgery (SDC) | payer MEDICARE, OTHER ==
[~2019-01-15] VITALS: Ht 177.8 cm; Wt 129.0 kg
[~2019-01-15 07:00] MED LIST changes: +ALBU3IS INH; +Acetaminophen325 M1 PO; +Ciprodex Otic7.5 ML RIGHTEAR; +LEVEMIR FL100 UNIT/1 SC; +LEVO750 PO
--- NOTE | 2019-01-15 07:42 | NUR ---
01/15/19 0742 Anyi Hill PT PRESENTS TO PRE OP WITH OPEN WOUND ON RIGHT FOOT, BANDAGE COVERING IT. PT ALSO STATES SHE HAS AN OPEN WOUND ON LEFT TOE WITH BANDAGE COVERING THIS.
--- NOTE | 2019-01-15 11:01 | NUR ---
01/15/19 1101 Chiqui Padilla NAUSEA AND DRY HEAVES AFTER ZOFRAN IV. MED C REGLAN 10MG IV, AWAKE ALERT VISITING WITH FAMILY
== END 2019-01-15 11:46 | disposition home or self-care (01) ==
LOC: ORSCSDS 07:00
PROVIDERS: Podiatrist Foot & Ankle Surgery
PROC: 0L8V0ZZ Division of Right Foot Tendon, Open Approach (ICD-10-PCS; principal; 2019-01-15 08:30)
PROC: 0QBL0ZZ Excision of Right Tarsal, Open Approach (ICD-10-PCS; principal; 2019-01-15 08:30)
DX: M20.41 Other hammer toe(s) (acquired), right foot (principal); M14.679 Charcot's joint, unspecified ankle and foot; M24.574 Contracture, right foot; E11.9 Type 2 diabetes mellitus without complications; G47.33 Obstructive sleep apnea (adult) (pediatric); Z99.81 Dependence on supplemental oxygen; E66.01 Morbid (severe) obesity due to excess calories; Z68.41 Body mass index [BMI] 40.0-44.9, adult; Z79.899 Other long term (current) drug therapy; Z79.4 Long term (current) use of insulin
CPT/HCPCS: 82947; C1713; J0690; J2250; J2405; J2704; J2765; J3010; J7120

== ENCOUNTER → 2019-09-03 | Outpatient (CLI) | payer MEDICARE, OTHER ==
[~2019-09-03] MED LIST changes: +ATOR40TA PO; +Flonase 0.05% N16 GM INH; +Humalog100 UNIT/1 SC; +MONTELUKAST SOD10 MG PO
[2019-09-03 11:02] LABS: Microalb/Creat Ratio UR, Rand Unable to Calculate mg/g (0.000-30.000); Microalbumin, Random Urine <5.000 mg/L (0.000-20.000)
== END | disposition home or self-care (01) ==
LOC: LAB SHORT 09:12 → OLS 09:12
PROVIDERS: Internal Medicine Endocrinology, Diabetes & Metabolism
DX: E11.65 Type 2 diabetes mellitus with hyperglycemia (principal)
CPT/HCPCS: 82043; 82570

== ENCOUNTER 2020-11-22 08:59 | Day surgery (SDC) | payer MEDICARE, OTHER ==
[~2020-11-22] VITALS: Ht 175.3 cm; Wt 124.9 kg
[~2020-11-22 08:59] MED LIST changes: +ALBU3IS; -ALBU3IS INH; +BYDUREON B2 MG/0.81 SC; +FAMO20 PO; +HUMULIN R500 UNIT/2 SC; -INSU100I6 SC; +METO100ER PO; +NOVOLOG FL100 UNIT/3 SC; +SYMBICORT 160-4.6 GM INH
[2020-11-22] MEDS ORDERED: TRESIBA FL200 UNIT/2 SC (10:00)
[2020-11-22] MEDS ORDERED: JARDIANCE10 MG PO (10:00)
--- NOTE | 2020-11-22 10:36 | NUR ---
History, Chart, Medications and Allergies reviewed before start of procedure. Lungs clear T/O to Auscultation. Patient confirms NPO status and agrees with scheduled surgery. Pre-Op teaching done. Pt verbalizes understanding. Patient States Post-Procedure ride home has been arranged.
--- NOTE | 2020-11-22 11:25 | NUR ---
11/22/20 1125 Ivon Car History, Chart, Medications and Allergies reviewed before start of procedure. CARE BY . SEE ANESTHESIA PAPER FLOW SHEET.
--- NOTE | 2020-11-22 12:29 | NUR ---
Discharge instructions reviewed with patient. Patient verbalizes understanding. Copy given to patient to take home. BONIFACIO FLUIDS WELL.
--- NOTE | 2020-11-22 12:31 | NUR ---
Discharged via wheelchair to private car for ride home.
== END 2020-11-22 12:31 | disposition home or self-care (01) ==
LOC: ORSCMMR 08:59 → ORD 10:45 → ORSCMMR 10:45
PROVIDERS: Internal Medicine Gastroenterology
PROC: 0DB48ZX Excision of Esophagogastric Junction, Via Natural or Artificial Opening Endoscopic, Diagnostic (ICD-10-PCS; principal; 2020-11-22 10:45)
PROC: 0DB68ZX Excision of Stomach, Via Natural or Artificial Opening Endoscopic, Diagnostic (ICD-10-PCS; principal; 2020-11-22 10:45)
PROC: 0DB88ZX Excision of Small Intestine, Via Natural or Artificial Opening Endoscopic, Diagnostic (ICD-10-PCS; principal; 2020-11-22 10:45)
DX: Z01.818 Encounter for other preprocedural examination (principal); K21.9 Gastro-esophageal reflux disease without esophagitis; G47.30 Sleep apnea, unspecified; E11.9 Type 2 diabetes mellitus without complications; F32.9 Major depressive disorder, single episode, unspecified; E78.00 Pure hypercholesterolemia, unspecified; J44.9 Chronic obstructive pulmonary disease, unspecified; Z87.891 Personal history of nicotine dependence; E66.01 Morbid (severe) obesity due to excess calories; Z68.41 Body mass index [BMI] 40.0-44.9, adult; Z79.82 Long term (current) use of aspirin; Z79.84 Long term (current) use of oral hypoglycemic drugs; Z79.899 Other long term (current) drug therapy
CPT/HCPCS: 82947; 88305; 88342; J2405; J2704; J7120

== ENCOUNTER 2020-12-08 10:09 | Emergency (ER) | payer MEDICARE, OTHER ==
[~2020-12-08] VITALS: Ht 175.3 cm; Wt 124.7 kg
[~2020-12-08 10:09] MED LIST changes: +JARDIANCE10 MG PO; +TRESIBA FL200 UNIT/2 SC
== END 2020-12-08 13:03 | disposition home or self-care (01) ==
LOC: ER 10:09
DX: S60.221A Contusion of right hand, initial encounter (principal); Z79.51 Long term (current) use of inhaled steroids; Z79.899 Other long term (current) drug therapy; Z79.4 Long term (current) use of insulin; W01.198A Fall on same level from slipping, tripping and stumbling with subsequent striking against other object, initial encounter
CPT/HCPCS: 29125; 73130; 99283-25

== ENCOUNTER 2021-05-25 06:43 | Day surgery (SDC) | payer MEDICARE, OTHER ==
[~2021-05-25] VITALS: Ht 177.8 cm; Wt 124.7 kg
[2021-05-25] MEDS ORDERED: OMEP20ER PO (07:28)
--- NOTE | 2021-05-25 07:34 | NUR ---
Ambulatory in Day Surgery Surgical site prepped with 2% Chlorhexidine cloth wipe. History, Chart, Medications and Allergies reviewed before start of procedure.Lungs clear T/O to Auscultation. Patient confirms NPO status and agrees with scheduled surgery. Pre-Op teaching done. Pt verbalizes understanding. Patient States Post-Procedure ride home has been arranged. Patient reports completing Chlorhexadine shower X2 prior to admission to hospital.
--- NOTE | 2021-05-25 09:55 | NUR ---
RECIEVED PATIENT AND REPORT VSS DENIES PAIN ABLE TO MOVE TOES . REQUESTING DRINK
--- NOTE | 2021-05-25 10:39 | NUR ---
Discharge instructions reviewed with patient. Patient verbalizes understanding. Copy given to patient to take home. Patient States Post-Procedure ride home has been arranged. Discharged via wheelchair to private car for ride home.
== END 2021-05-25 23:53 | disposition home or self-care (01) ==
LOC: ORSCMMR 06:43 → ORD 11:30 → ORSCMMR 11:30
PROVIDERS: Podiatrist Foot & Ankle Surgery
PROC: 0Y6S0Z0 Detachment at Left 2nd Toe, Complete, Open Approach (ICD-10-PCS; principal; 2021-05-25 08:30)
DX: E11.621 Type 2 diabetes mellitus with foot ulcer (principal); G47.33 Obstructive sleep apnea (adult) (pediatric); J45.909 Unspecified asthma, uncomplicated; E66.01 Morbid (severe) obesity due to excess calories; Z68.39 Body mass index [BMI] 39.0-39.9, adult; Z79.4 Long term (current) use of insulin; Z79.899 Other long term (current) drug therapy
CPT/HCPCS: 82947; 88305; 88311; J0171; J0690; J2250; J2704; J3010; J7120

== ENCOUNTER 2021-10-04 13:18 | Day surgery (SDC) | payer MEDICARE, OTHER ==
[~2021-10-04 13:18] MED LIST changes: +OMEP20ER PO
[2021-10-04] MEDS ORDERED: CLOBETASOL EMOL15 G1 TOP (17:12)
[2021-10-04] MEDS ORDERED: CALCIUM CARBON500 M1 PO (17:16)
--- NOTE | 2021-10-04 17:17 | NUR ---
VITALS AT 1700: BP 107/62, HR 93, RESPIRATIONS 16, TEMP 99.0, O2 99%
[2021-10-04] MEDS ORDERED: SYMBICORT 160-4.6 GM INH (17:19)
[2021-10-04] MEDS ORDERED: OZEMPIC0.25 MG/0. SC (17:19)
[2021-10-04] MEDS ORDERED: MELO7.5 PO (17:19)
[2021-10-04] MEDS ORDERED: LIDO700A20 TOP (17:20)
[2021-10-04] MEDS ORDERED: Crestor20 MG PO (17:21)
[2021-10-04] MEDS ORDERED: DEXA6 PO (17:32)
--- NOTE | 2021-10-04 18:18 | NUR ---
PT MONITORED DURING AND Q 15 MINUTES AFTER HER INFUSION FOR 1 HOUR. NO S/S OF RXN NOTED. PT ESCORTED TO AND FROM HER CAR VIA WC TODAY.
== END 2021-10-04 18:04 | disposition home or self-care (01) ==
LOC: ATC 13:18
DX: U07.1 COVID-19 (principal); E11.9 Type 2 diabetes mellitus without complications; J44.9 Chronic obstructive pulmonary disease, unspecified; Z79.84 Long term (current) use of oral hypoglycemic drugs; Z79.899 Other long term (current) drug therapy
CPT/HCPCS: 96365; Q0243

== ENCOUNTER → 2022-12-03 | Outpatient (CLI) | payer MEDICARE, OTHER ==
[~2022-12-03] MED LIST changes: +CALCIUM CARBON500 M1 PO; +CLOBETASOL EMOL15 G1 TOP; +Crestor20 MG PO; +DEXA6 PO; +LIDO700A20 TOP; +MELO7.5 PO; +OZEMPIC0.25 MG/0. SC
[2022-12-03 13:21] LABS: BASOPHILS ABSOLUTE AUTO 0.07 K/mm3 (0.00-0.23); BASOPHILS PERCENT AUTO 1 % (0-2); EOSINOPHILS ABSOLUTE AUTO 0.16 K/mm3 (0.00-0.68); EOSINOPHILS PERCENT AUTO 2 % (0-6); Hematocrit 43.9 % (33.0-51.0); Hemoglobin 14.4 g/dL (11.5-16.0); IMMATURE GRAN ABSOLUTE AUTO 0.04 K/mm3 (0.00-0.10); IMMATURE GRAN PERCENT AUTO 0 % (0-1); LYMPHOCYTES ABSOLUTE AUTO 1.44 K/mm3 (0.84-5.20); LYMPHOCYTES PERCENT AUTO 14 % (21-46); MONOCYTES ABSOLUTE AUTO 0.66 K/mm3 (0.16-1.47); MONOCYTES PERCENT AUTO 7 % (4-13); Mean Corpuscular HGB 29.8 pg (26.0-34.0); Mean Corpuscular HGB Conc 32.8 g/dL (31.5-36.5); Mean Corpuscular Volume 91 fL (80-100); Mean Platelet Volume 12.5 fL (9.1-12.4); NEUTROPHILS ABSOLUTE AUTO 7.61 K/mm3 (1.96-9.15); NEUTROPHILS PERCENT AUTO 76 % (41-73); Platelet Count 151 K/mm3 (150-400); RDW Coefficient Variation 16.8 % (11.7-14.2); RDW Standard Deviation 55.8 fL (35.1-46.3); Red Blood Cell Count 4.83 M/mm3 (3.80-5.20); White Blood Cell Count 9.98 K/mm3 (4.00-11.30)
[2022-12-03 13:38] LABS: Bun/Creatinine Ratio 25.3 (12.0-20.0); Calcium, Blood 9.8 mg/dL (8.5-10.1); Creatinine, Blood 0.87 mg/dL (0.40-1.00); Potassium, Blood 4.2 mmol/L (3.5-5.5)
== END ==
LOC: LAB SHORT 13:14
PROVIDERS: Podiatrist Foot & Ankle Surgery
DX: Z01.812 Encounter for preprocedural laboratory examination (principal)
CPT/HCPCS: 36415; 80048; 85025

== ENCOUNTER 2022-12-09 10:28 | Day surgery (SDC) | payer MEDICARE, OTHER ==
[~2022-12-09] VITALS: Ht 175.3 cm; Wt 121.8 kg
[2022-12-09] MEDS ORDERED: FERROUS FUMARAT89 M1 PO (12:16)
--- NOTE | 2022-12-09 12:51 | NUR ---
12/09/22 1251 Anyi Hill ROPIVACAINE 0.5% 30 MLS MIXED W/ EPI 0.15 ML (1MG/ML) PER ORDER TO MAKE ROPIVACAINE 0.5% 1:200,000 FOR INJECTION AT OPSITE BY DR OLSON.
--- NOTE | 2022-12-09 13:43 | NUR ---
12/09/22 1343 RYAN GARG PT CAME OUT ON 6L O2 VIA NASAL CANNULA. PT PLACED ON 10L VIA FACE TENT ONCE IN PACU. PT HX COPD/FOX. PT VERY SLEEPY. TRIAL ON 5L. CONTINUES TO BE 98%
--- NOTE | 2022-12-09 14:56 | NUR ---
12/09/22 1456 Cierra Nguyen PT IN RECLINER RELAXING WAITING FOR TO COME BACK WITH CRUTCHES
== END 2022-12-09 14:55 | disposition home or self-care (01) ==
LOC: ORSCSDS 10:28
PROVIDERS: Podiatrist Foot & Ankle Surgery
PROC: 0QB Lower Bones, Excision (ICD-10-PCS; principal; 2022-12-09 12:30)
DX: M14.671 Charcot's joint, right ankle and foot (principal); L03.115 Cellulitis of right lower limb; E11.42 Type 2 diabetes mellitus with diabetic polyneuropathy; I10 Essential (primary) hypertension; I48.0 Paroxysmal atrial fibrillation; K21.9 Gastro-esophageal reflux disease without esophagitis; J44.9 Chronic obstructive pulmonary disease, unspecified; G47.33 Obstructive sleep apnea (adult) (pediatric); E66.01 Morbid (severe) obesity due to excess calories; Z68.41 Body mass index [BMI] 40.0-44.9, adult; Z79.899 Other long term (current) drug therapy; Z79.82 Long term (current) use of aspirin
CPT/HCPCS: 82947; J0171; J0690; J2250; J2405; J2704; J2765; J2795; J3010; J7120

== ENCOUNTER 2024-03-12 04:17 | Day surgery (SDC) | payer MEDICARE, OTHER ==
[~2024-03-12 04:17] MED LIST changes: +FERROUS FUMARAT89 M1 PO
== END 2024-03-12 22:41 | disposition home or self-care (01) ==
LOC: WOUND 04:17
DX: E11.621 Type 2 diabetes mellitus with foot ulcer (principal); L97.412 Non-pressure chronic ulcer of right heel and midfoot with fat layer exposed; E11.40 Type 2 diabetes mellitus with diabetic neuropathy, unspecified; E11.51 Type 2 diabetes mellitus with diabetic peripheral angiopathy without gangrene; I48.91 Unspecified atrial fibrillation; I87.2 Venous insufficiency (chronic) (peripheral); I73.9 Peripheral vascular disease, unspecified; Z79.4 Long term (current) use of insulin
CPT/HCPCS: 36415; 80053; 85025; 85651; 86140; 87070; 87205; 93922; 93970; G0463

== ENCOUNTER 2024-04-02 03:16 | Day surgery (SDC) | payer MEDICARE, OTHER ==
[2024-04-02] MEDS ORDERED: Silver Nitr/Potassium Nitrate 1 EA APPL ONE (09:02)
== END 2024-04-02 23:04 | disposition home or self-care (01) ==
LOC: WOUND 03:16
DX: E11.621 Type 2 diabetes mellitus with foot ulcer (principal); L97.515 Non-pressure chronic ulcer of other part of right foot with muscle involvement without evidence of necrosis; E11.40 Type 2 diabetes mellitus with diabetic neuropathy, unspecified; E11.51 Type 2 diabetes mellitus with diabetic peripheral angiopathy without gangrene; I87.2 Venous insufficiency (chronic) (peripheral); I48.91 Unspecified atrial fibrillation
CPT/HCPCS: A6196; A9270

== ENCOUNTER 2024-04-09 02:34 | Day surgery (SDC) | payer MEDICARE, OTHER | END 2024-04-09 23:08 | disposition home or self-care (01) | LOC: WOUND 02:34 | DX: E11.621 Type 2 diabetes mellitus with foot ulcer (principal); L97.515 Non-pressure chronic ulcer of other part of right foot with muscle involvement without evidence of necrosis; E11.40 Type 2 diabetes mellitus with diabetic neuropathy, unspecified; E11.51 Type 2 diabetes mellitus with diabetic peripheral angiopathy without gangrene; I48.91 Unspecified atrial fibrillation; I87.2 Venous insufficiency (chronic) (peripheral) | CPT/HCPCS: G0463 ==

== ENCOUNTER 2024-04-16 01:40 | Day surgery (SDC) | payer MEDICARE, OTHER ==
[2024-04-16] MEDS ORDERED: Silver Nitr/Potassium Nitrate 1 EA APPL ONE (13:24)
== END 2024-04-16 22:34 | disposition home or self-care (01) ==
LOC: WOUND 01:40
DX: E11.621 Type 2 diabetes mellitus with foot ulcer (principal); L97.515 Non-pressure chronic ulcer of other part of right foot with muscle involvement without evidence of necrosis; E11.51 Type 2 diabetes mellitus with diabetic peripheral angiopathy without gangrene; I87.2 Venous insufficiency (chronic) (peripheral); I48.91 Unspecified atrial fibrillation
CPT/HCPCS: A9270

== ENCOUNTER 2024-04-23 05:42 | Day surgery (SDC) | payer MEDICARE, OTHER | END 2024-04-23 22:33 | disposition home or self-care (01) | LOC: WOUND 05:42 | DX: E11.621 Type 2 diabetes mellitus with foot ulcer (principal); L97.512 Non-pressure chronic ulcer of other part of right foot with fat layer exposed; E11.51 Type 2 diabetes mellitus with diabetic peripheral angiopathy without gangrene; I87.2 Venous insufficiency (chronic) (peripheral); I48.91 Unspecified atrial fibrillation | CPT/HCPCS: G0463 ==

== ENCOUNTER 2024-04-28 01:15 | Emergency (ER) | payer MEDICARE, OTHER ==
[~2024-04-28] VITALS: Ht 160 cm; Wt 90.7 kg
[2024-04-28] MEDS ORDERED: NS 1,000 ML IV SCH ×2 (01:30→02:35)
[2024-04-28] MEDS ORDERED: Ketorolac Tromethamine 30mg Vial IV ONE (01:30)
[2024-04-28 01:36] LABS: BASOPHILS ABSOLUTE AUTO 0.08 K/mm3 (0.00-0.23); BASOPHILS PERCENT AUTO 1 % (0-2); EOSINOPHILS PERCENT AUTO 2 % (0-6); Hematocrit 43.1 % (33.0-51.0); Hemoglobin 13.8 g/dL (11.5-16.0); IMMATURE GRAN ABSOLUTE AUTO 0.07 K/mm3 (0.00-0.10); IMMATURE GRAN PERCENT AUTO 1 % (0-1); LYMPHOCYTES PERCENT AUTO 14 % (21-46); MONOCYTES ABSOLUTE AUTO 0.84 K/mm3 (0.16-1.47); MONOCYTES PERCENT AUTO 8 % (4-13); Mean Corpuscular HGB 29.2 pg (26.0-34.0); Mean Corpuscular Volume 91 fL (80-100); Mean Platelet Volume 11.9 fL (9.1-12.4); NEUTROPHILS ABSOLUTE AUTO 7.76 K/mm3 (1.96-9.15); NEUTROPHILS PERCENT AUTO 74 % (41-73); Platelet Count 147 K/mm3 (150-400); Red Blood Cell Count 4.73 M/mm3 (3.80-5.20); White Blood Cell Count 10.45 K/mm3 (4.00-11.30)
[2024-04-28 01:51] LABS: Source, Urine Clean Catch
[2024-04-28 01:55] LABS: Albumin/Globulin Ratio 0.6 (0.8-1.8); Bilirubin, Total 0.7 mg/dL (0.1-1.0); Bun/Creatinine Ratio 20.5 (12.0-20.0); Calcium, Blood 9.2 mg/dL (8.5-10.1); Creatinine, Blood 0.83 mg/dL (0.40-1.00); Globulin, Blood 4.8 g/dL (2.2-4.0); Potassium, Blood 4.2 mmol/L (3.5-5.5); Total Protein, Blood 7.8 g/dL (6.4-8.2)
[2024-04-28 02:00] LABS: Bilirubin, Urine Neg (Neg); Blood, Urine Neg (Neg); Glucose Qualitative, Urine 4+ (Neg); Ketones, Urine Neg (Neg); Leukocyte Esterase, Urine Neg (Neg); Nitrite, Urine Neg (Neg); Protein, Urine Neg (Neg); Urobilinogen, Urine 1+ (Normal)
[2024-04-28 02:28] LABS: Color, Urine Yellow (P-Yellow)
[2024-04-28 02:29] LABS: Appearance, Urine Clear (Clear)
[2024-04-28 03:30] VITALS: BP 131/53
[2024-04-28] MEDS ORDERED: Fleet Enema132 ML PR (03:41)
[2024-04-28] MEDS ORDERED: Miralax17 GM PO (03:41)
[2024-04-28] MEDS ORDERED: Magnesium Hydroxide Conc 10 ML UDC PO ONE (03:45)
== END 2024-04-28 03:55 | disposition home or self-care (01) ==
LOC: ER 01:15
PROVIDERS: Emergency Medicine
DX: K59.00 Constipation, unspecified (principal); R10.11 Right upper quadrant pain; E11.40 Type 2 diabetes mellitus with diabetic neuropathy, unspecified; I10 Essential (primary) hypertension; G47.30 Sleep apnea, unspecified; J44.9 Chronic obstructive pulmonary disease, unspecified; Z79.51 Long term (current) use of inhaled steroids; Z79.4 Long term (current) use of insulin; Z79.84 Long term (current) use of oral hypoglycemic drugs; Z79.82 Long term (current) use of aspirin; Z79.85 Long-term (current) use of injectable non-insulin antidiabetic drugs; Z79.899 Other long term (current) drug therapy
CPT/HCPCS: 74176; 80053; 81003; 83605; 85025; 96361; 96374; 99284-25; A9270; J1885; J7030

== ENCOUNTER 2024-05-28 03:22 | Day surgery (SDC) | payer MEDICARE, OTHER ==
[~2024-05-28 03:22] MED LIST changes: +Fleet Enema132 ML PR; +Miralax17 GM PO
== END 2024-05-28 23:31 | disposition home or self-care (01) ==
LOC: WOUND 03:22
DX: E11.621 Type 2 diabetes mellitus with foot ulcer (principal); L97.519 Non-pressure chronic ulcer of other part of right foot with unspecified severity; I73.9 Peripheral vascular disease, unspecified; I87.2 Venous insufficiency (chronic) (peripheral); I48.91 Unspecified atrial fibrillation
CPT/HCPCS: G0463

== ENCOUNTER 2024-06-11 02:02 | Day surgery (SDC) | payer MEDICARE, OTHER ==
[2024-06-11] MEDS ORDERED: Silver Nitr/Potassium Nitrate 1 EA APPL ONE (08:10)
== END 2024-06-11 23:19 | disposition home or self-care (01) ==
LOC: WOUND 02:02
DX: E11.621 Type 2 diabetes mellitus with foot ulcer (principal); L97.512 Non-pressure chronic ulcer of other part of right foot with fat layer exposed; E11.51 Type 2 diabetes mellitus with diabetic peripheral angiopathy without gangrene; E11.40 Type 2 diabetes mellitus with diabetic neuropathy, unspecified; I87.2 Venous insufficiency (chronic) (peripheral); I48.91 Unspecified atrial fibrillation
CPT/HCPCS: A9270

== ENCOUNTER 2024-06-25 04:58 | Day surgery (SDC) | payer MEDICARE, OTHER | END 2024-06-26 01:31 | disposition home or self-care (01) | LOC: WOUND 04:58 | DX: E11.621 Type 2 diabetes mellitus with foot ulcer (principal); L97.512 Non-pressure chronic ulcer of other part of right foot with fat layer exposed; E11.40 Type 2 diabetes mellitus with diabetic neuropathy, unspecified; E11.51 Type 2 diabetes mellitus with diabetic peripheral angiopathy without gangrene; I87.2 Venous insufficiency (chronic) (peripheral); I48.91 Unspecified atrial fibrillation | CPT/HCPCS: G0463 ==

== ENCOUNTER 2024-07-02 01:29 | Day surgery (SDC) | payer MEDICARE, OTHER | END 2024-07-02 22:51 | disposition home or self-care (01) | LOC: WOUND 01:29 | DX: E11.621 Type 2 diabetes mellitus with foot ulcer (principal); L97.512 Non-pressure chronic ulcer of other part of right foot with fat layer exposed; E11.40 Type 2 diabetes mellitus with diabetic neuropathy, unspecified; E11.51 Type 2 diabetes mellitus with diabetic peripheral angiopathy without gangrene; I87.2 Venous insufficiency (chronic) (peripheral); I48.91 Unspecified atrial fibrillation ==

== ENCOUNTER 2024-07-09 01:19 | Day surgery (SDC) | payer MEDICARE, OTHER | END 2024-07-10 02:50 | disposition home or self-care (01) | LOC: WOUND 01:19 | DX: E11.621 Type 2 diabetes mellitus with foot ulcer (principal); L97.512 Non-pressure chronic ulcer of other part of right foot with fat layer exposed; E11.40 Type 2 diabetes mellitus with diabetic neuropathy, unspecified; E11.51 Type 2 diabetes mellitus with diabetic peripheral angiopathy without gangrene; I48.91 Unspecified atrial fibrillation; J44.9 Chronic obstructive pulmonary disease, unspecified | CPT/HCPCS: G0463 ==

== ENCOUNTER 2024-07-16 03:36 | Day surgery (SDC) | payer MEDICARE, OTHER ==
[2024-07-16] MEDS ORDERED: Silver Nitr/Potassium Nitrate 1 EA APPL ONE (08:15)
== END 2024-07-17 01:15 | disposition home or self-care (01) ==
LOC: WOUND 03:36
DX: E11.621 Type 2 diabetes mellitus with foot ulcer (principal); L97.512 Non-pressure chronic ulcer of other part of right foot with fat layer exposed; E11.51 Type 2 diabetes mellitus with diabetic peripheral angiopathy without gangrene; I48.91 Unspecified atrial fibrillation
CPT/HCPCS: A9270

== ENCOUNTER 2024-07-23 02:02 | Day surgery (SDC) | payer MEDICARE, OTHER ==
[2024-07-23] MEDS ORDERED: Silver Nitr/Potassium Nitrate 1 EA APPL ONE (08:03)
== END 2024-07-23 22:49 | disposition home or self-care (01) ==
LOC: WOUND 02:02
DX: E11.621 Type 2 diabetes mellitus with foot ulcer (principal); L97.512 Non-pressure chronic ulcer of other part of right foot with fat layer exposed; E11.51 Type 2 diabetes mellitus with diabetic peripheral angiopathy without gangrene; I87.2 Venous insufficiency (chronic) (peripheral); I48.91 Unspecified atrial fibrillation
CPT/HCPCS: A9270

== ENCOUNTER 2024-07-30 02:59 | Day surgery (SDC) | payer MEDICARE, OTHER | END 2024-07-30 22:38 | disposition home or self-care (01) | LOC: WOUND 02:59 | DX: E11.621 Type 2 diabetes mellitus with foot ulcer (principal); L97.512 Non-pressure chronic ulcer of other part of right foot with fat layer exposed; E11.51 Type 2 diabetes mellitus with diabetic peripheral angiopathy without gangrene; E11.40 Type 2 diabetes mellitus with diabetic neuropathy, unspecified; J44.9 Chronic obstructive pulmonary disease, unspecified; I48.91 Unspecified atrial fibrillation | CPT/HCPCS: G0463 ==

== ENCOUNTER 2024-08-06 01:53 | Day surgery (SDC) | payer MEDICARE, OTHER | END 2024-08-06 23:38 | disposition home or self-care (01) | LOC: WOUND 01:53 | DX: E11.621 Type 2 diabetes mellitus with foot ulcer (principal); L97.512 Non-pressure chronic ulcer of other part of right foot with fat layer exposed; E11.51 Type 2 diabetes mellitus with diabetic peripheral angiopathy without gangrene; I87.2 Venous insufficiency (chronic) (peripheral); I48.91 Unspecified atrial fibrillation; J44.9 Chronic obstructive pulmonary disease, unspecified; Z89.422 Acquired absence of other left toe(s) | CPT/HCPCS: G0463 ==

== ENCOUNTER 2024-09-17 03:25 | Day surgery (SDC) | payer MEDICARE, OTHER | END 2024-09-17 23:00 | disposition home or self-care (01) | LOC: WOUND 03:25 | DX: E11.621 Type 2 diabetes mellitus with foot ulcer (principal); L97.512 Non-pressure chronic ulcer of other part of right foot with fat layer exposed; E11.40 Type 2 diabetes mellitus with diabetic neuropathy, unspecified; E11.51 Type 2 diabetes mellitus with diabetic peripheral angiopathy without gangrene; I48.91 Unspecified atrial fibrillation ==

== ENCOUNTER 2024-09-23 16:50 | Emergency (ER) | payer MEDICARE, OTHER ==
[~2024-09-23] VITALS: Ht 175.3 cm; Wt 117.9 kg
[2024-09-23 17:33] LABS: BASOPHILS ABSOLUTE AUTO 0.07 K/mm3 (0.00-0.23); BASOPHILS PERCENT AUTO 1 % (0-2); EOSINOPHILS ABSOLUTE AUTO 0.18 K/mm3 (0.00-0.68); EOSINOPHILS PERCENT AUTO 2 % (0-6); Hematocrit 38.4 % (33.0-51.0); Hemoglobin 12.2 g/dL (11.5-16.0); IMMATURE GRAN PERCENT AUTO 1 % (0-1); LYMPHOCYTES PERCENT AUTO 15 % (21-46); MONOCYTES ABSOLUTE AUTO 0.49 K/mm3 (0.16-1.47); MONOCYTES PERCENT AUTO 6 % (4-13); Mean Corpuscular HGB 29.8 pg (26.0-34.0); Mean Corpuscular HGB Conc 31.8 g/dL (31.5-36.5); Mean Corpuscular Volume 94 fL (80-100); Mean Platelet Volume 11.6 fL (9.1-12.4); NEUTROPHILS ABSOLUTE AUTO 5.92 K/mm3 (1.96-9.15); NEUTROPHILS PERCENT AUTO 74 % (41-73); Platelet Count 168 K/mm3 (150-400); RDW Coefficient Variation 16.1 % (11.7-14.2); RDW Standard Deviation 54.9 fL (35.1-46.3); Red Blood Cell Count 4.09 M/mm3 (3.80-5.20); White Blood Cell Count 7.96 K/mm3 (4.00-11.30)
[2024-09-23 17:43] LABS: Albumin, Blood 2.3 g/dL (3.4-5.0); Albumin/Globulin Ratio 0.5 (0.8-1.8); Bilirubin, Total 0.7 mg/dL (0.1-1.0); Bun/Creatinine Ratio 15.3 (12.0-20.0); Calcium, Blood 9.4 mg/dL (8.5-10.1); Creatinine, Blood 0.78 mg/dL (0.40-1.00); Globulin, Blood 4.7 g/dL (2.2-4.0); Potassium, Blood 4.3 mmol/L (3.5-5.5)
[2024-09-23 18:11] LABS: CORONAVIRUS COVID-19 AG Negative (NEGATIVE); INFLUENZA A AG Negative (NEGATIVE); INFLUENZA B AG Negative (NEGATIVE)
[2024-09-23] MEDS ORDERED: MethylPREDNISolone Sod Succ 125 MG Vial IV ONE (21:30)
[2024-09-23] MEDS ORDERED: Azithromycin 250 MG Tab PO ONE (21:30)
[2024-09-23] MEDS ORDERED: Albuterol 2.5 MG/3 ML VIAL INH SCH (21:30)
[2024-09-23] MEDS ORDERED: CefTRIAXone Sodium 1,000 MG in NS 100 ML IV ONE (21:35)
[2024-09-23] MEDS ORDERED: Zithromax250 MG PO (21:39)
[2024-09-23] MEDS ORDERED: ALBU2.5V5 INH (21:39)
[2024-09-23] MEDS ORDERED: Prednisone20 MG PO (21:39)
[2024-09-23] MEDS ORDERED: CEFP200 PO (21:39)
[2024-09-23 22:30] VITALS: BP 137/71
== END 2024-09-23 22:50 | disposition home or self-care (01) ==
LOC: ER 16:50
PROVIDERS: Student in an Organized Health Care Education/Training Program
DX: J18.9 Pneumonia, unspecified organism (principal); J44.1 Chronic obstructive pulmonary disease with (acute) exacerbation; E11.40 Type 2 diabetes mellitus with diabetic neuropathy, unspecified; G47.30 Sleep apnea, unspecified; I10 Essential (primary) hypertension; Z79.82 Long term (current) use of aspirin; Z79.51 Long term (current) use of inhaled steroids; Z79.4 Long term (current) use of insulin; Z79.899 Other long term (current) drug therapy
CPT/HCPCS: 71046; 80053; 84484; 85025; 87428-QW; 93005; 93010; 94644; 94664; 96365; 96375; 99285-25; A9270; J0696; J2919

== ENCOUNTER 2024-10-08 04:30 | Day surgery (SDC) | payer MEDICARE, OTHER ==
[~2024-10-08 04:30] MED LIST changes: +ALBU2.5V5 INH; +CEFP200 PO; +Prednisone20 MG PO; +Zithromax250 MG PO
== END 2024-10-08 04:32 | disposition home or self-care (01) ==
LOC: WOUND 04:30
DX: E11.621 Type 2 diabetes mellitus with foot ulcer (principal); L97.512 Non-pressure chronic ulcer of other part of right foot with fat layer exposed; E11.51 Type 2 diabetes mellitus with diabetic peripheral angiopathy without gangrene; I87.2 Venous insufficiency (chronic) (peripheral); I48.91 Unspecified atrial fibrillation
CPT/HCPCS: G0463

== ENCOUNTER 2024-10-15 06:10 | Day surgery (SDC) | payer MEDICARE, OTHER | END 2024-10-15 23:00 | disposition home or self-care (01) | LOC: WOUND 06:10 | DX: E11.621 Type 2 diabetes mellitus with foot ulcer (principal); L97.512 Non-pressure chronic ulcer of other part of right foot with fat layer exposed; E11.40 Type 2 diabetes mellitus with diabetic neuropathy, unspecified; E11.51 Type 2 diabetes mellitus with diabetic peripheral angiopathy without gangrene; I87.2 Venous insufficiency (chronic) (peripheral); I48.91 Unspecified atrial fibrillation | CPT/HCPCS: G0463 ==

== ENCOUNTER 2024-10-22 06:04 | Day surgery (SDC) | payer MEDICARE, OTHER | END 2024-10-22 23:00 | disposition home or self-care (01) | LOC: WOUND 06:04 | DX: E11.621 Type 2 diabetes mellitus with foot ulcer (principal); L97.512 Non-pressure chronic ulcer of other part of right foot with fat layer exposed; L97.422 Non-pressure chronic ulcer of left heel and midfoot with fat layer exposed; E11.51 Type 2 diabetes mellitus with diabetic peripheral angiopathy without gangrene; I87.2 Venous insufficiency (chronic) (peripheral); I48.91 Unspecified atrial fibrillation ==

== ENCOUNTER 2024-10-29 02:56 | Day surgery (SDC) | payer MEDICARE, OTHER ==
[2024-10-29] MEDS ORDERED: Silver Nitr/Potassium Nitrate 1 EA APPL ONE ×2 (08:13→08:14)
== END 2024-10-29 23:00 | disposition home or self-care (01) ==
LOC: WOUND 02:56
DX: E11.621 Type 2 diabetes mellitus with foot ulcer (principal); L97.422 Non-pressure chronic ulcer of left heel and midfoot with fat layer exposed; L97.512 Non-pressure chronic ulcer of other part of right foot with fat layer exposed; E11.51 Type 2 diabetes mellitus with diabetic peripheral angiopathy without gangrene; I87.2 Venous insufficiency (chronic) (peripheral); I48.91 Unspecified atrial fibrillation; E11.40 Type 2 diabetes mellitus with diabetic neuropathy, unspecified
CPT/HCPCS: A9270

== ENCOUNTER 2024-11-04 01:21 | Day surgery (SDC) | payer MEDICARE, OTHER | END 2024-11-04 23:00 | disposition home or self-care (01) | LOC: WOUND 01:21 | DX: E11.621 Type 2 diabetes mellitus with foot ulcer (principal); L97.512 Non-pressure chronic ulcer of other part of right foot with fat layer exposed; L97.422 Non-pressure chronic ulcer of left heel and midfoot with fat layer exposed; E11.40 Type 2 diabetes mellitus with diabetic neuropathy, unspecified; E11.51 Type 2 diabetes mellitus with diabetic peripheral angiopathy without gangrene; I87.2 Venous insufficiency (chronic) (peripheral); I48.91 Unspecified atrial fibrillation; Z89.422 Acquired absence of other left toe(s) | CPT/HCPCS: G0463 ==

== ENCOUNTER 2024-11-26 03:49 | Day surgery (SDC) | payer MEDICARE, OTHER | END 2024-11-26 23:00 | disposition home or self-care (01) | LOC: WOUND 03:49 | DX: E11.621 Type 2 diabetes mellitus with foot ulcer (principal); L97.512 Non-pressure chronic ulcer of other part of right foot with fat layer exposed; L97.422 Non-pressure chronic ulcer of left heel and midfoot with fat layer exposed; E11.51 Type 2 diabetes mellitus with diabetic peripheral angiopathy without gangrene; E11.40 Type 2 diabetes mellitus with diabetic neuropathy, unspecified; I87.2 Venous insufficiency (chronic) (peripheral); I48.91 Unspecified atrial fibrillation; Z89.422 Acquired absence of other left toe(s) | CPT/HCPCS: G0463 ==

== ENCOUNTER 2024-12-03 02:05 | Day surgery (SDC) | payer MEDICARE, OTHER | END 2024-12-03 23:00 | disposition home or self-care (01) | LOC: WOUND 02:05 | DX: E11.621 Type 2 diabetes mellitus with foot ulcer (principal); L97.522 Non-pressure chronic ulcer of other part of left foot with fat layer exposed; E11.51 Type 2 diabetes mellitus with diabetic peripheral angiopathy without gangrene; I87.2 Venous insufficiency (chronic) (peripheral) ==

== ENCOUNTER 2024-12-10 05:02 | Day surgery (SDC) | payer MEDICARE, OTHER | END 2024-12-10 23:00 | disposition home or self-care (01) | LOC: WOUND 05:02 | DX: E11.621 Type 2 diabetes mellitus with foot ulcer (principal); L97.422 Non-pressure chronic ulcer of left heel and midfoot with fat layer exposed; E11.40 Type 2 diabetes mellitus with diabetic neuropathy, unspecified; E11.51 Type 2 diabetes mellitus with diabetic peripheral angiopathy without gangrene; I48.91 Unspecified atrial fibrillation; I87.2 Venous insufficiency (chronic) (peripheral) | CPT/HCPCS: G0463 ==

== ENCOUNTER 2024-12-17 04:07 | Day surgery (SDC) | payer MEDICARE, OTHER | END 2024-12-17 23:00 | disposition home or self-care (01) | LOC: WOUND 04:07 | DX: E11.621 Type 2 diabetes mellitus with foot ulcer (principal); L97.422 Non-pressure chronic ulcer of left heel and midfoot with fat layer exposed; E11.51 Type 2 diabetes mellitus with diabetic peripheral angiopathy without gangrene; I87.2 Venous insufficiency (chronic) (peripheral); I48.91 Unspecified atrial fibrillation; E11.40 Type 2 diabetes mellitus with diabetic neuropathy, unspecified; Z89.422 Acquired absence of other left toe(s) | CPT/HCPCS: G0463 ==

== ENCOUNTER 2024-12-24 03:13 | Day surgery (SDC) | payer MEDICARE, OTHER | END 2024-12-24 23:00 | disposition home or self-care (01) | LOC: WOUND 03:13 | DX: E11.621 Type 2 diabetes mellitus with foot ulcer (principal); L97.422 Non-pressure chronic ulcer of left heel and midfoot with fat layer exposed; E11.51 Type 2 diabetes mellitus with diabetic peripheral angiopathy without gangrene; I87.2 Venous insufficiency (chronic) (peripheral); I48.91 Unspecified atrial fibrillation | CPT/HCPCS: G0463 ==

== ENCOUNTER 2024-12-31 03:58 | Day surgery (SDC) | payer MEDICARE, OTHER | END 2024-12-31 23:00 | disposition home or self-care (01) | LOC: WOUND 03:58 | DX: E11.621 Type 2 diabetes mellitus with foot ulcer (principal); L97.422 Non-pressure chronic ulcer of left heel and midfoot with fat layer exposed; E11.51 Type 2 diabetes mellitus with diabetic peripheral angiopathy without gangrene; I87.2 Venous insufficiency (chronic) (peripheral); I48.91 Unspecified atrial fibrillation | CPT/HCPCS: G0463 ==

== ENCOUNTER 2025-01-14 03:25 | Day surgery (SDC) | payer MEDICARE, OTHER ==
[2025-01-14] MEDS ORDERED: Silver Nitr/Potassium Nitrate 1 EA APPL ONE (08:41)
== END 2025-01-14 23:00 | disposition home or self-care (01) ==
LOC: WOUND 03:25
DX: E11.621 Type 2 diabetes mellitus with foot ulcer (principal); L97.422 Non-pressure chronic ulcer of left heel and midfoot with fat layer exposed; I87.2 Venous insufficiency (chronic) (peripheral); E11.51 Type 2 diabetes mellitus with diabetic peripheral angiopathy without gangrene; E11.40 Type 2 diabetes mellitus with diabetic neuropathy, unspecified; I48.91 Unspecified atrial fibrillation
CPT/HCPCS: A9270

== ENCOUNTER 2025-01-21 02:37 | Day surgery (SDC) | payer MEDICARE, OTHER | END 2025-01-21 23:00 | disposition home or self-care (01) | LOC: WOUND 02:37 | DX: E11.621 Type 2 diabetes mellitus with foot ulcer (principal); L97.422 Non-pressure chronic ulcer of left heel and midfoot with fat layer exposed; E11.51 Type 2 diabetes mellitus with diabetic peripheral angiopathy without gangrene; I87.2 Venous insufficiency (chronic) (peripheral); I48.91 Unspecified atrial fibrillation; Z79.82 Long term (current) use of aspirin; Z79.84 Long term (current) use of oral hypoglycemic drugs; Z79.899 Other long term (current) drug therapy | CPT/HCPCS: G0463 ==

== ENCOUNTER 2025-02-04 03:14 | Day surgery (SDC) | payer MEDICARE, OTHER | END 2025-02-04 23:00 | disposition home or self-care (01) | LOC: WOUND 03:14 | DX: E11.621 Type 2 diabetes mellitus with foot ulcer (principal); L97.422 Non-pressure chronic ulcer of left heel and midfoot with fat layer exposed; E11.51 Type 2 diabetes mellitus with diabetic peripheral angiopathy without gangrene; I87.2 Venous insufficiency (chronic) (peripheral); I48.91 Unspecified atrial fibrillation; E11.40 Type 2 diabetes mellitus with diabetic neuropathy, unspecified | CPT/HCPCS: G0463 ==

== ENCOUNTER 2025-02-11 03:26 | Day surgery (SDC) | payer MEDICARE, OTHER | END 2025-02-11 23:00 | disposition home or self-care (01) | LOC: WOUND 03:26 | DX: E11.621 Type 2 diabetes mellitus with foot ulcer (principal); L97.422 Non-pressure chronic ulcer of left heel and midfoot with fat layer exposed; E11.51 Type 2 diabetes mellitus with diabetic peripheral angiopathy without gangrene; I87.2 Venous insufficiency (chronic) (peripheral); I48.91 Unspecified atrial fibrillation | CPT/HCPCS: G0463 ==

== ENCOUNTER 2025-02-24 01:15 | Day surgery (SDC) | payer MEDICARE, OTHER | END 2025-02-24 23:00 | disposition home or self-care (01) | LOC: WOUND 01:15 | DX: E11.621 Type 2 diabetes mellitus with foot ulcer (principal); L97.422 Non-pressure chronic ulcer of left heel and midfoot with fat layer exposed; E11.51 Type 2 diabetes mellitus with diabetic peripheral angiopathy without gangrene; I87.2 Venous insufficiency (chronic) (peripheral); I48.91 Unspecified atrial fibrillation; E11.40 Type 2 diabetes mellitus with diabetic neuropathy, unspecified | CPT/HCPCS: G0463 ==

== ENCOUNTER 2025-03-11 01:31 | Day surgery (SDC) | payer MEDICARE, OTHER ==
[2025-03-11] MEDS ORDERED: Silver Nitr/Potassium Nitrate 1 EA APPL ONE (09:34)
== END 2025-03-11 23:00 | disposition home or self-care (01) ==
LOC: WOUND 01:31
DX: E11.621 Type 2 diabetes mellitus with foot ulcer (principal); L97.422 Non-pressure chronic ulcer of left heel and midfoot with fat layer exposed; E11.51 Type 2 diabetes mellitus with diabetic peripheral angiopathy without gangrene; I87.2 Venous insufficiency (chronic) (peripheral); I48.91 Unspecified atrial fibrillation; E11.40 Type 2 diabetes mellitus with diabetic neuropathy, unspecified
CPT/HCPCS: A6196; A9270

== ENCOUNTER 2025-04-15 01:36 | Day surgery (SDC) | payer MEDICARE, OTHER | END 2025-04-15 23:00 | disposition home or self-care (01) | LOC: WOUND 01:36 | DX: E11.621 Type 2 diabetes mellitus with foot ulcer (principal); L97.422 Non-pressure chronic ulcer of left heel and midfoot with fat layer exposed; E11.51 Type 2 diabetes mellitus with diabetic peripheral angiopathy without gangrene; I87.2 Venous insufficiency (chronic) (peripheral); I48.91 Unspecified atrial fibrillation; E11.40 Type 2 diabetes mellitus with diabetic neuropathy, unspecified | CPT/HCPCS: A6196; G0463 ==

== ENCOUNTER 2025-04-22 05:50 | Day surgery (SDC) | payer MEDICARE, OTHER | END 2025-04-22 23:00 | disposition home or self-care (01) | LOC: WOUND 05:50 | DX: E11.621 Type 2 diabetes mellitus with foot ulcer (principal); L97.422 Non-pressure chronic ulcer of left heel and midfoot with fat layer exposed; E11.51 Type 2 diabetes mellitus with diabetic peripheral angiopathy without gangrene; I87.2 Venous insufficiency (chronic) (peripheral); I48.91 Unspecified atrial fibrillation | CPT/HCPCS: A6196 ==

== ENCOUNTER 2025-05-06 03:58 | Day surgery (SDC) | payer MEDICARE, OTHER | END 2025-05-06 23:00 | disposition home or self-care (01) | LOC: WOUND 03:58 | DX: E11.621 Type 2 diabetes mellitus with foot ulcer (principal); L97.421 Non-pressure chronic ulcer of left heel and midfoot limited to breakdown of skin; E11.51 Type 2 diabetes mellitus with diabetic peripheral angiopathy without gangrene; E11.40 Type 2 diabetes mellitus with diabetic neuropathy, unspecified; I87.2 Venous insufficiency (chronic) (peripheral); I48.91 Unspecified atrial fibrillation; Z89.422 Acquired absence of other left toe(s) | CPT/HCPCS: G0463 ==

== ENCOUNTER 2025-06-03 02:56 | Day surgery (SDC) | payer MEDICARE, OTHER ==
[~2025-06-03 02:56] MED LIST changes: +METF500C PO; -Metformin HCl1000 MG PO; +RIZATRIPTAN10 MG SL
== END 2025-06-03 23:16 | disposition home or self-care (01) ==
LOC: WOUND 02:56
DX: Z86.31 Personal history of diabetic foot ulcer (principal); E11.51 Type 2 diabetes mellitus with diabetic peripheral angiopathy without gangrene; I48.91 Unspecified atrial fibrillation; M25.511 Pain in right shoulder; M25.512 Pain in left shoulder; M25.551 Pain in right hip; M25.552 Pain in left hip; M43.26 Fusion of spine, lumbar region; M75.31 Calcific tendinitis of right shoulder; M75.32 Calcific tendinitis of left shoulder; R26.81 Unsteadiness on feet
CPT/HCPCS: 73030; 73522; G0463

== ENCOUNTER 2025-06-08 19:37 | Observation (INO) | payer MEDICARE, OTHER ==
[~2025-06-08] VITALS: Ht 177.8 cm; Wt 122.3 kg
[~2025-06-08 19:37] MED LIST changes: +Insulin Regular 100 UNIT/ML 10ML Vial SC SCH
[2025-06-08] MEDS ORDERED: ELIQUIS5 M3 PO (19:57)
[2025-06-08] MEDS ORDERED: JARDIANCE10 MG PO (20:00)
[2025-06-08] MEDS ORDERED: MOUNJARO5 MG/0.5 M SQ (20:01)
[2025-06-08] MEDS ORDERED: OXYC5 PO (20:01)
[2025-06-08] MEDS ORDERED: Prinivil10 MG PO (20:01)
[2025-06-08 20:28] LABS: BASOPHILS ABSOLUTE AUTO 0.07 K/mm3 (0.00-0.23); BASOPHILS PERCENT AUTO 1 % (0-2); EOSINOPHILS ABSOLUTE AUTO 0.14 K/mm3 (0.00-0.68); EOSINOPHILS PERCENT AUTO 2 % (0-6); Hematocrit 37.7 % (33.0-51.0); Hemoglobin 12.5 g/dL (11.5-16.0); IMMATURE GRAN ABSOLUTE AUTO 0.03 K/mm3 (0.00-0.10); IMMATURE GRAN PERCENT AUTO 0 % (0-1); LYMPHOCYTES ABSOLUTE AUTO 1.19 K/mm3 (0.84-5.20); LYMPHOCYTES PERCENT AUTO 16 % (21-46); MONOCYTES ABSOLUTE AUTO 0.74 K/mm3 (0.16-1.47); MONOCYTES PERCENT AUTO 10 % (4-13); Mean Corpuscular HGB Conc 33.2 g/dL (31.5-36.5); Mean Corpuscular Volume 89 fL (80-100); NEUTROPHILS ABSOLUTE AUTO 5.37 K/mm3 (1.96-9.15); NEUTROPHILS PERCENT AUTO 71 % (41-73); NRBC ABSOLUTE 0.00 K/mm3 (0.00-0.02); NRBC Auto 0.0 /100 WBC (0.0-0.2); Platelet Count 103 K/mm3 (150-400); RDW Coefficient Variation 17.3 % (11.7-14.2); RDW Standard Deviation 56.1 fL (35.1-46.3)
[2025-06-08] MEDS ORDERED: FentaNYL Citrate 50 MCG/ML 2 ML Injection IV PRN (21:05)
[2025-06-08 21:11] LABS: Alanine Aminotransfer (ALT/SGP 35.0 U/L (12-78); Albumin, Blood 2.9 g/dL (3.4-5.0); Albumin/Globulin Ratio 0.7 (0.8-1.8); Anion Gap 9.0 mmol/L (3-11); Aspartate Aminotrans (AST/SGOT 66.0 U/L (12-37); Bilirubin, Total 0.9 mg/dL (0.1-1.0); Blood Urea Nitrogen 15.0 mg/dL (8-24); CO2, Blood 26.0 mmol/L (21-32); Calcium, Blood 9.2 mg/dL (8.5-10.1); Chloride, Blood 101.0 mmol/L (98-108); Creatinine, Blood 0.92 mg/dL (0.40-1.00); D-Dimer, Quantitative 0.27 mg/L FEU (0.00-0.52); Globulin, Blood 4.1 g/dL (2.2-4.0); Glucose, Blood 305.0 mg/dL (70-99); Potassium, Blood 4.3 mmol/L (3.5-5.5); Prothrombin Time Results 11.6 Sec (9.7-11.5); Sodium, Blood 132.0 mmol/L (136-145); Total Protein, Blood 7.0 g/dL (6.4-8.2)
[2025-06-08] MEDS ORDERED: Albuterol 2.5 MG/3 ML VIAL INH PRN (23:40)
[2025-06-08] MEDS ORDERED: Morphine Sulfate 4 MG/1 ML Injection IV PRN (23:45)
[2025-06-08] MEDS ORDERED: Formoterol/Mometasone MDI 5/200 mcg 13 GM INH SCH (23:45)
[2025-06-09 00:06] LABS: CHOL/HDL RATIO 1.8; Cholesterol 104 mg/dL (50-200); HDL Cholesterol 57 mg/dL (>39); LDL/HDL RATIO 0.5; Low Density Lipoprotein Chol 28 mg/dL (0-110); Thyroid Stimulating Hormone 1.650 uIU/mL (0.360-4.800); Triglycerides 93 mg/dL (30-160); Very Low Density Lipoprot Chol 18 mg/dL (6-32)
[2025-06-09] MEDS ORDERED: NS 1,000 ML IV SCH ×2 (00:10→04:40)
[2025-06-09 04:59] VITALS: BP 113/54
[2025-06-09] MEDS ORDERED: Cyclobenzaprine5 MG PO (05:12)
[2025-06-09 05:15] LABS: BASOPHILS ABSOLUTE AUTO 0.05 K/mm3 (0.00-0.23); BASOPHILS PERCENT AUTO 1 % (0-2); EOSINOPHILS ABSOLUTE AUTO 0.14 K/mm3 (0.00-0.68); EOSINOPHILS PERCENT AUTO 2 % (0-6); Hematocrit 38.2 % (33.0-51.0); Hemoglobin 12.2 g/dL (11.5-16.0); IMMATURE GRAN ABSOLUTE AUTO 0.03 K/mm3 (0.00-0.10); IMMATURE GRAN PERCENT AUTO 1 % (0-1); LYMPHOCYTES ABSOLUTE AUTO 1.03 K/mm3 (0.84-5.20); LYMPHOCYTES PERCENT AUTO 16 % (21-46); MONOCYTES ABSOLUTE AUTO 0.67 K/mm3 (0.16-1.47); MONOCYTES PERCENT AUTO 11 % (4-13); Mean Corpuscular HGB Conc 31.9 g/dL (31.5-36.5); Mean Corpuscular Volume 92 fL (80-100); NEUTROPHILS ABSOLUTE AUTO 4.43 K/mm3 (1.96-9.15); NEUTROPHILS PERCENT AUTO 70 % (41-73); NRBC ABSOLUTE 0.00 K/mm3 (0.00-0.02); NRBC Auto 0.0 /100 WBC (0.0-0.2); Platelet Count 88 K/mm3 (150-400); RDW Coefficient Variation 17.4 % (11.7-14.2); RDW Standard Deviation 58.8 fL (35.1-46.3)
[2025-06-09] MEDS ORDERED: CARVEDILOL3.125 MG PO (05:15)
[2025-06-09 05:32] LABS: Prothrombin Time Results 11.5 Sec (9.7-11.5)
[2025-06-09 06:18] LABS: Alanine Aminotransfer (ALT/SGP 30.0 U/L (12-78); Albumin, Blood 2.7 g/dL (3.4-5.0); Albumin/Globulin Ratio 0.7 (0.8-1.8); Anion Gap 10.0 mmol/L (3-11); Aspartate Aminotrans (AST/SGOT 65.0 U/L (12-37); Bilirubin, Total 0.7 mg/dL (0.1-1.0); Blood Urea Nitrogen 17.0 mg/dL (8-24); CO2, Blood 27.0 mmol/L (21-32); Calcium, Blood 8.7 mg/dL (8.5-10.1); Chloride, Blood 104.0 mmol/L (98-108); Creatinine, Blood 0.96 mg/dL (0.40-1.00); Globulin, Blood 3.8 g/dL (2.2-4.0); Glucose, Blood 228.0 mg/dL (70-99); Potassium, Blood 4.5 mmol/L (3.5-5.5); Sodium, Blood 136.0 mmol/L (136-145); Total Protein, Blood 6.5 g/dL (6.4-8.2)
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
[2025-06-09] MEDS ORDERED: Insulin Regular 100 UNIT/ML 10ML Vial SC SCH ×5 (09:00→17:00)
[2025-06-09] MEDS ORDERED: Heparin Sodium,Porcine 5,000 UNIT/0.5 ML SDV SC SCH (09:00)
[2025-06-09] MEDS ORDERED: Fluticasone 0.05% Nasal Spray SCH (09:00)
[2025-06-09] MEDS ORDERED: Miconazole Nitrate 2% 85 GM PWD TOP SCH (09:00)
[2025-06-09] MEDS ORDERED: Insulin Glargine,Hum.Rec.Anlog 100 UNIT/ML 3MLSYR SC SCH (09:00)
[2025-06-09 11:48] VITALS: BP 124/51
[2025-06-09] MEDS ORDERED: Aminophylline 250MG / 10ML 10 ML Vial ONE (13:29)
[2025-06-09 16:31] VITALS: BP 117/42
--- NOTE | 2025-06-09 18:55 | NUR ---
End of Shift Pt A&O x4. VSS. Spo2 > 92% on RA. Monitor showing SR. Pt denying CP or discomfort this shift. Echo done this shift & 1st day portion of stress test complete today. Pt anticipating 2nd portion of stress test tomorrow morning.
[2025-06-09 20:10] VITALS: BP 119/42
[2025-06-09 23:56] VITALS: BP 123/46
[2025-06-10 03:12] VITALS: BP 114/42
[2025-06-10 04:36] VITALS: BP 124/55
--- NOTE | 2025-06-10 05:08 | NUR ---
SHIFT SUMMARY THIS RN ASSUMED CARE OF PATIENT AT 1900. PT A&O X4. ABLE TO MAKE NEEDS KNOWN. DENIES CHEST PAIN/PRESSURE DURING THIS SHIFT. REPORTED LEFT SHOULDER PAIN WHICH PT HAS HX OF; MEDICATED PER EMAR FOR PAIN. BP STABLE. SR ON MONITOR. ON RA WHILE AWAKE, USING CPAP WITH 2L BLEED IN FOR NOC. AFEBRILE. USING BSC INDEPENDENTLY. NS INFUSING PER EMAR. PT HAS BEEN NPO SINCE MIDNIGHT FOR 2ND PORTION OF STRESS TEST THIS AM. INDEPENDENT WITH REPOSITIONING. ANTIFUNGAL POWDER TO COSTA/ABDOMINAL FOLDS. BED IN LOWEST POSITION AND CALL LIGHT WITHIN REACH. THIS RN WILL REPORT TO ONCOMING DAYSHIFT RN.
[2025-06-10 08:15] VITALS: BP 115/64
[2025-06-10 11:50] VITALS: BP 133/50
[2025-06-10 16:35] VITALS: BP 145/71
--- NOTE | 2025-06-10 16:55 | NUR ---
Discharge Home Pt A&O x4. VSS. Spo2 > 92% on RA. CPAP at bedside for use while sleeping. Monitor showing NSR. Pt denying CP or discomfort. Stress test complete today. Pt w/ orders for discharge home. Discharge instructions reviewed w/ pt & sent home w/ pt. PIV removed & pt taken out in wheelchair w/ belongings at approx 1650.
== END 2025-06-10 16:58 | disposition home or self-care (01) ==
LOC: ER 19:37 → PCU 19:38 → ERHOLD 23:15 → ER 23:15 → PCU 23:15 → ERHOLD 06-09 04:21 → PCU 06-09 04:21
PROVIDERS: Emergency Medicine; Student in an Organized Health Care Education/Training Program; ADMIT Internal Medicine
DX: R07.89 Other chest pain (principal); E11.40 Type 2 diabetes mellitus with diabetic neuropathy, unspecified; I48.0 Paroxysmal atrial fibrillation; J44.9 Chronic obstructive pulmonary disease, unspecified; E87.1 Hypo-osmolality and hyponatremia; I10 Essential (primary) hypertension; M48.00 Spinal stenosis, site unspecified; G47.33 Obstructive sleep apnea (adult) (pediatric); Z79.01 Long term (current) use of anticoagulants; Z79.4 Long term (current) use of insulin; Z79.899 Other long term (current) drug therapy
CPT/HCPCS: 36415; 71046; 78452; 80053; 80061; 82947; 83036; 83690; 84443; 84484; 85025; 85379; 85610; 85730; 93005; 93010; 93017; 93306; 94640; 94660; 94664; 94762; 96372; 96374; 99285-25; A9270; A9500; G0378; J0280; J1644; J1815; J2785; J3010; J7030

== ENCOUNTER 2025-07-15 08:00 | Day surgery (SDC) | payer MEDICARE, OTHER ==
[~2025-07-15 08:00] MED LIST changes: +CARVEDILOL3.125 MG PO; +Cyclobenzaprine5 MG PO; +ELIQUIS5 M3 PO; -Insulin Regular 100 UNIT/ML 10ML Vial SC SCH; +JARDIANCE10 MG; +MOUNJARO5 MG/0.5 M SQ; +OXYC5 PO; +Prinivil10 MG PO
== END 2025-07-15 23:00 | disposition home or self-care (01) ==
LOC: WOUND
DX: E11.621 Type 2 diabetes mellitus with foot ulcer (principal); L97.512 Non-pressure chronic ulcer of other part of right foot with fat layer exposed; E11.40 Type 2 diabetes mellitus with diabetic neuropathy, unspecified; I87.2 Venous insufficiency (chronic) (peripheral); E11.51 Type 2 diabetes mellitus with diabetic peripheral angiopathy without gangrene; Z89.422 Acquired absence of other left toe(s)
CPT/HCPCS: A6196; G0463

== ENCOUNTER 2025-08-05 00:39 | Day surgery (SDC) | payer MEDICARE, OTHER | END 2025-08-05 23:00 | disposition home or self-care (01) | LOC: WOUND 00:39 | DX: E11.621 Type 2 diabetes mellitus with foot ulcer (principal); L97.512 Non-pressure chronic ulcer of other part of right foot with fat layer exposed; E11.51 Type 2 diabetes mellitus with diabetic peripheral angiopathy without gangrene; I87.2 Venous insufficiency (chronic) (peripheral); Z89.422 Acquired absence of other left toe(s) | CPT/HCPCS: G0463 ==

== ENCOUNTER 2025-08-19 02:37 | Day surgery (SDC) | payer MEDICARE, OTHER | END 2025-08-19 23:00 | disposition home or self-care (01) | LOC: WOUND 02:37 | DX: E11.621 Type 2 diabetes mellitus with foot ulcer (principal); L97.512 Non-pressure chronic ulcer of other part of right foot with fat layer exposed; E11.40 Type 2 diabetes mellitus with diabetic neuropathy, unspecified; E11.51 Type 2 diabetes mellitus with diabetic peripheral angiopathy without gangrene | CPT/HCPCS: G0463 ==